=== PATIENT | male | born 1980 | race Caucasian/White ===

== ENCOUNTER 2019-01-20 07:36 | Inpatient (IN) | payer OTHER ==
[~2019-01-20] VITALS: Ht 175.3 cm; Wt 76.6 kg
[~2019-01-20 07:36] MED LIST: CLIN300 PO
[2019-01-20 08:36] LABS: Hematocrit 43.7 % (37.0-53.0); Hemoglobin 15.5 g/dL (13.5-17.5); Mean Corpuscular HGB 30.8 pg (26.0-34.0); Mean Corpuscular HGB Conc 35.5 g/dL (31.5-36.5); Mean Corpuscular Volume 87 fL (80-100); Mean Platelet Volume 10.1 fL (9.1-12.4); Platelet Count 169 K/mm3 (150-400); RDW Coefficient Variation 13.1 % (11.7-14.2); RDW Standard Deviation 41.2 fL (35.1-46.3); Red Blood Cell Count 5.04 M/mm3 (4.30-5.90); White Blood Cell Count 13.76 K/mm3 (4.00-11.30)
[2019-01-20 08:49] LABS: International Normalized Ratio 1.17; Prothrombin Time Results 12.2 Sec (9.7-11.5)
[2019-01-20 08:57] LABS: Albumin, Blood 2.3 g/dL (3.4-5.0); Albumin/Globulin Ratio 0.5 (0.8-1.8); Bun/Creatinine Ratio 30.7 (12.0-20.0); Calcium, Blood 8.4 mg/dL (8.5-10.1); Creatinine, Blood 1.5 mg/dL (0.60-1.20); Globulin, Blood 4.2 g/dL (2.2-4.0); Potassium, Blood 3.2 mmol/L (3.5-5.5); Total Protein, Blood 6.5 g/dL (6.4-8.2)
[2019-01-20 09:00] LABS: BAND PERCENT MAN 16 % (0-8); BASOPHILS PERCENT MAN 0 % (0-2); EOSINOPHILS ABSOLUTE MAN 0.13 K/mm3 (0.00-0.68); EOSINOPHILS PERCENT MAN 1 % (0-6); LYMPHOCYTES ABSOLUTE MAN 0.96 K/mm3 (0.84-5.20); LYMPHOCYTES PERCENT MAN 7 % (21-46); METAMYELOCYTE ABSOLUTE MAN 0.27 K/mm3 (0.00-0.00); METAMYELOCYTE PERCENT MAN 2 % (0-0); MONOCYTES ABSOLUTE MAN 0.41 K/mm3 (0.16-1.47); MONOCYTES PERCENT MAN 3 % (4-13); NEUTROPHILS ABSOLUTE MAN 11.97 K/mm3 (1.96-9.15); SEG NEUTROPHILS PERCENT MAN 71 % (41-73); TOTAL CELLS COUNTED 100
[2019-01-20] MEDS ORDERED: NAPR500 PO (09:00)
[2019-01-20] MEDS ORDERED: Norco 5-325 Ta1 EACH PO (09:01)
[2019-01-20] MEDS ORDERED: PROBIOTIC1 EAC1 PO (09:01)
--- NOTE | 2019-01-20 11:11 | NUR ---
ADMIT: PT ARRIVED TO ICU 6 VIA BED, ABLE TO STAND AND TRANSFER SELF TO BED WITH 1 ASSIST. PT ALERT AND ORIENTED. SWELLING, FIRMNESS, AND LIGHT REDNESS AROUND CHIN AND NECK. PT STATES IT IS A LITTLE PAINFUL TO TOUCH AND HE HAS HAD MILD DIFFICULTY WITH EATING AND SWALLOWING FOOD. BREATHING APPEARS UNLABORED AT THIS TIME. ON 1L/NC WITH SPO2 95%. PT STATES REDNESS STARTED AFTER HE CUT HIMSELF SHAVING AND ABCESS HAS BEEN DRAINED ONCE AT URGENT CARE. HE DOESN'T BELIEVE THEY TOOK ANY SWABS OR CULTURES. IV ABX STARTED. SEPSIS FLUID BOLUS GOING FOR TOTAL OF 1700CC. CONTINUING TO MONITOR.
--- NOTE | 2019-01-20 14:30 | NUR ---
PT'S HR HAS BEEN INCREASING, WAS 120S WHEN HE GOT HERE, NOW REACHING 140S, SINUS. BP REMAINS STABLE. DR. ARITA NOTIFIED, RECEIVED ORDER FOR 1L NS BOLUS AND PAIN MEDICINE GIVEN. CONTINUE TO MONITOR.
--- NOTE | 2019-01-20 15:45 | NUR ---
PT'S HR DOWN TO 130 AFTER BOLUS AND PAIN MEDICATION. SPOKE WITH DR. ARITA AND SHE OK'D PT TO STILL GO TO MEDICAL FLOOR WITH TELE.
--- NOTE | 2019-01-20 16:17 | NUR ---
PT'S SBP IN THE 80S NOW, MAP STILL IN THE 70S AND PT'S SPO2 WAS 91% ON 1L/NC. OXYGEN INCREASED TO 2L/NC AND DR. ARITA NOTIFIED OF BP. PT STILL HASN'T VOIDED YET AND DENIES THE URGE TO VOID WELL. DR. ARITA GAVE ORDERS TO MAKE PT PCU STATUS INSTEAD OF MED TELE. CONTINUE TO MONITOR.
[2019-01-20 17:02] LABS: Source, Urine Clean Catch
[2019-01-20 17:10] LABS: Adenovirus Not Detected (NOT DETECT); Bordetella pertussis Not Detected (NOT DETECT); Chlamydophila pneumoniae Not Detected (NOT DETECT); Coronavirus 229E Not Detected (NOT DETECT); Coronavirus HKU1 Not Detected (NOT DETECT); Coronavirus NL63 Not Detected (NOT DETECT); Coronavirus OC43 Not Detected (NOT DETECT); Human Metapneumovirus Not Detected (NOT DETECT); Human Rhinovirus/Enterovirus Not Detected (NOT DETECT); Influenza A Not Detected (NOT DETECT); Influenza A/2009-H1 Not Detected (NOT DETECT); Influenza A/H1 Not Detected (NOT DETECT); Influenza A/H3 Not Detected (NOT DETECT); Influenza B Not Detected (NOT DETECT); Mycoplasma pneumoniae Not Detected (NOT DETECT); Parainfluenza Virus 1 Not Detected (NOT DETECT); Parainfluenza Virus 2 Not Detected (NOT DETECT); Parainfluenza Virus 3 Not Detected (NOT DETECT); Parainfluenza Virus 4 Not Detected (NOT DETECT); Respiratory Syncytial Virus Not Detected (NOT DETECT)
[2019-01-20 17:15] LABS: Blood, Urine 4+ (Neg); Glucose Qualitative, Urine Neg (Neg); Ketones, Urine 1+ (Neg); Leukocyte Esterase, Urine 1+ (Neg); Nitrite, Urine Neg (Neg); Protein, Urine 2+ (Neg); Specific Gravity, Urine 1.015 (1.003-1.022); Urobilinogen, Urine 3+ (Normal)
--- NOTE | 2019-01-20 17:30 | NUR ---
SHIFT SUMMARY: PT CONTINUES TO BE ST WITH RATE IN THE 120-130. SBP IS HANGING IN THE 90-LOW 100 RANGE, BUT MAP REMAINS ABOVE 65. PT WAS ABLE TO VOID. URINE VERY DARK, TEA COLORED, CONCENTRATED LOOKING. PT IS ALERT AND ORIENTED, DENIES DIZZINESS, SLIGHTLY DIAPHORETIC. SWELLING AND REDNESS UNDERNEATH HIS CHIN UNCHANGED. PT IS EATING SOME AND TOLERATING HIS DIET. HE STATES THE HARDEST PART ABOUT EATING IS THE GENERALIZED WEAKNESS. NO OTHER CONCERNS FROM PT AT THIS TIME. CONTINUING TO MONITOR.
[2019-01-20 17:39] LABS: U Amphetamine Screen Not Detected; U Barbituate Screen Not Detected; U Benzodiazapine Screen Not Detected; U Buprenorphine Screen Not Detected; U Cannabinoids Screen Not Detected; U Cocaine Screen Not Detected; U Methadone Screen Not Detected; U Methamphetamine Screen Not Detected; U Opiates Screen DETECTED; U Oxycodone Screen Not Detected; U Phencyclidine Screen Not Detected; U Propoxyphene Screen Not Detected
[2019-01-20 17:43] LABS: Bilirubin, Urine 2+ (Neg)
[2019-01-20 17:44] LABS: Appearance, Urine Cloudy (Clear); Color, Urine Amber (P-Yellow)
[2019-01-20 17:46] LABS: Squamous Epithelial Cells Few /hpf (Few)
[2019-01-20 17:47] LABS: Bacteria Many /hpf; Red Blood Cells, Urine 0-2 /hpf (0-2)
--- NOTE | 2019-01-20 20:32 | NUR ---
NIGHTSHIFT ASSUMED CARE OF PT APPROX. 1900. PT A&O X4. ASSESSMENT COMPLETED. VITAL SIGNS STABLE. BP, SLIGHTLY LOW BUT MAP REMAINS IN 60'S. HEART RHYTHM SINUS TACHYCARIDA IN 130'S AT THIS TIME. PT CHIN WARM TO TOUCH AND SLIGHTLY RED. PT REPORTS SLIGHT PAIN WITH TOUCH BUT REPORTS IT FEELS BETTER THAN IT HAS. BED IN LOW POSITION, CALL LIGHT IN REACH AND PT DENIES ANY NEEDS.
--- NOTE | 2019-01-20 22:04 | NUR ---
NOTE PT BLOOD PRESURE CONTINUED TO BE LOW. SBP IN 90'S. ALTHOUGH MAP STILL IN 60'S. PHYSICIAN NOTIFIED. RECIEVED ORDERS FOR FLUID BOLUS. GIVEN PER EMAR ORDERS. WILL CONTINUE TO MONITOR THIS.
[2019-01-20 22:27] LABS: Anion Gap 7 mmol/L (6-16); Blood Urea Nitrogen 39 mg/dL (8-24); Bun/Creatinine Ratio 28.1 (12.0-20.0); CO2, Blood 27 mmol/L (21-32); Calcium, Blood 7.3 mg/dL (8.5-10.1); Chloride, Blood 106 mmol/L (98-108); Creatinine, Blood 1.39 mg/dL (0.60-1.20); Glomerular Filtration Rate >60 (60-); Glucose, Blood 108 mg/dL (70-99); Potassium, Blood 3.6 mmol/L (3.5-5.5); Sodium, Blood 140 mmol/L (136-145)
--- NOTE | 2019-01-20 22:40 | NUR ---
NOTE PHYSICIAN AT BEDSIDE TO ASSESS PT. INCREASED RATE OF NS PER PHYSICIAN ORDERS. WILL AWAIT AND IMPLEMENT ANY NEW ORDERS.
--- NOTE | 2019-01-20 22:49 | NUR ---
NOTE PREVIOUSLY NOTIFIED OF POSITIVE BLOOD CULUTES. PHYSICIAN NOTIFIED OF THIS. NO NEW CHANGES AT THIS TIME.
--- NOTE | 2019-01-21 00:30 | NUR ---
ASSUMED CARE ASSUMED CARE OF PT AT THIS TIME. DR. MASCORRO PLACED RIGHT FEMORAL CENTRAL LINE. LEVOPHED STARTED AT 4MCG/MIN TO KEEP MAP >65. MONITOR SHOWS ST, RATE 130s. O2 2LNC. SHALLOW AND TACHYPNEIC RESPIRATIONS. DENIES C/O SOB OR DYSPNEA. DENIES C/O NAUSEA. COLOR PALE, SKIN SLIGHTLY CLAMMY. AFEBRILE. C/O RIGHT SIDE/BACK PAIN 02/02- MEDICATED WITH FENTANLY 50MCG IV PER ORDER. NS INFUSING AT 150CC/HR PER ORDER.
--- NOTE | 2019-01-21 00:50 | NUR ---
NOTE ORDERS RECIEVED FOR CENTRAL LINE INSERTION AND TO HAVE PRESSORS PER MD ORDRES. REPORT GIVEN TO RICKIE ANNE WHO WILL BE TAKING OVER CARE FOR THIS PATIENT AT THIS TIME.
[2019-01-21 04:08] LABS: Hematocrit 35.1 % (37.0-53.0); Hemoglobin 12.1 g/dL (13.5-17.5); LYMPHOCYTES ABSOLUTE AUTO 0.52 K/mm3 (0.84-5.20); LYMPHOCYTES PERCENT AUTO 4 % (21-46); MONOCYTES ABSOLUTE AUTO 0.26 K/mm3 (0.16-1.47); MONOCYTES PERCENT AUTO 2 % (4-13); Mean Corpuscular HGB 30.9 pg (26.0-34.0); Mean Corpuscular HGB Conc 34.5 g/dL (31.5-36.5); Mean Platelet Volume 10.3 fL (9.1-12.4); Platelet Count 121 K/mm3 (150-400); RDW Coefficient Variation 13.9 % (11.7-14.2); RDW Standard Deviation 45.4 fL (35.1-46.3); Red Blood Cell Count 3.91 M/mm3 (4.30-5.90); White Blood Cell Count 12.92 K/mm3 (4.00-11.30)
[2019-01-21 04:10] LABS: BASOPHILS ABSOLUTE AUTO 0.01 K/mm3 (0.00-0.23); BASOPHILS PERCENT AUTO 0 % (0-2); EOSINOPHILS ABSOLUTE AUTO 0.11 K/mm3 (0.00-0.68); EOSINOPHILS PERCENT AUTO 1 % (0-6); IMMATURE GRAN ABSOLUTE AUTO 0.84 K/mm3 (0.00-0.10); IMMATURE GRAN PERCENT AUTO 7 % (0-1); Mean Corpuscular Volume 90 fL (80-100); NEUTROPHILS ABSOLUTE AUTO 11.18 K/mm3 (1.96-9.15); NEUTROPHILS PERCENT AUTO 87 % (41-73)
[2019-01-21 04:26] LABS: Alanine Aminotransfer (ALT/SGP 51 U/L (12-78); Albumin, Blood 1.4 g/dL (3.4-5.0); Albumin/Globulin Ratio 0.4 (0.8-1.8); Alk Phos 96 U/L (50-136); Anion Gap 9 mmol/L (6-16); Aspartate Aminotrans (AST/SGOT 104 U/L (12-37); Bilirubin, Total 2.9 mg/dL (0.1-1.0); Blood Urea Nitrogen 36 mg/dL (8-24); Bun/Creatinine Ratio 29.8 (12.0-20.0); CO2, Blood 24 mmol/L (21-32); Calcium, Blood 7.3 mg/dL (8.5-10.1); Chloride, Blood 107 mmol/L (98-108); Creatinine, Blood 1.21 mg/dL (0.60-1.20); Globulin, Blood 3.2 g/dL (2.2-4.0); Glomerular Filtration Rate >60 (60-); Glucose, Blood 92 mg/dL (70-99); Magnesium, Blood 2.1 mg/dL (1.6-2.4); Potassium, Blood 3.9 mmol/L (3.5-5.5); Sodium, Blood 140 mmol/L (136-145); Total Protein, Blood 4.6 g/dL (6.4-8.2)
[2019-01-21 04:27] LABS: BAND PERCENT MAN 29 % (0-8); BASOPHILS PERCENT MAN 0 % (0-2); EOSINOPHILS ABSOLUTE MAN 0.25 K/mm3 (0.00-0.68); EOSINOPHILS PERCENT MAN 2 % (0-6); LYMPHOCYTES ABSOLUTE MAN 0.51 K/mm3 (0.84-5.20); LYMPHOCYTES PERCENT MAN 4 % (21-46); METAMYELOCYTE ABSOLUTE MAN 0.12 K/mm3 (0.00-0.00); METAMYELOCYTE PERCENT MAN 1 % (0-0); MONOCYTES PERCENT MAN 0 % (4-13); NEUTROPHILS ABSOLUTE MAN 12.01 K/mm3 (1.96-9.15); SEG NEUTROPHILS PERCENT MAN 64 % (41-73); TOTAL CELLS COUNTED 100
--- NOTE | 2019-01-21 06:25 | NUR ---
SHIFT SUMMARY ACUTE CHANGES NOTED DURING NOC. RIGHT FEMORAL CENTRAL LINE PLACED AND PRESSORS STARTED FOR CONTINUED HYPOTENSION. LEVOPHED INFUSED BETWEEN 4-7MCG/MIN DURING SHIFT TO KEEP MAP >65- NOW INFUSING @ 6MCG/MIN. MEDICATED WITH FENTANYL 50MCG IV X 1 AND NORCO 5/325MG PO X 1 FOR C/O RIGHT SIDE/BACK PAIN AND GENERAL DISCOMFORT. RESPIRATIONS SHALLOW AND TACHYPNEIC, RATE 20-30s. DENIES C/O SOB OR DYSPNEA. REMAINS ON 2L NC. MONITOR SHOWS ST, RATE 120-130s. AFEBRILE. VOIDED X 1- 650CC DARK BROWN URINE. DENIES C/O NAUSEA. WILL REPORT TO DAY SHIFT RN WHEN AVAILABLE.
--- NOTE | 2019-01-21 09:27 | NUR ---
CARE ASSUMED CARE AND REPORT ASSUMED FROM RICKIE ANNE. PT SITTING UP IN BED WATCHING TV. COMPLAINS OF PAIN TO ALL EXTREMITIES AND IS SLOW TO MOVE IN BED DUE TO WORSENING PAIN. C/O L FLANK PAIN WITH DEEP INSPIRATION. LUNG SOUNDS CLEAR TO DIMINSHED. SPO2 93% ON 2L NC. HEALING SCAB ON CHIN; MILD SURROUDNING REDNESS AND MILD SWELLING. [place], HR 120S. MAP 85 AT THIS TIME; LEVOPHED GTT TITRATED AND NOW INFUSING AT 4 MCG. NS INFUSING AT 150 ML/HR PER ORDER. PT HAD MEDIUM, SOFT BROWN BM IN BEDPAN. CALL LIGHT WITHIN REACH. PT A/O X 3, HE IS CALM AND COOPERATIVE BUT DOES HAVE FLAT AFFECT. WILL CONTINUE TO MONITOR.
--- NOTE | 2019-01-21 11:54 | NUR ---
REASSESSMENT PT SITTING UP IN BED WATCHING TV. STATES PAIN IS CONTROLLED AT THIS TIME. SIN[place], HR 120S. MAP 75 AT THIS TIME; LEVOPHED GTT INFUSING AT 3 MCG/MIN. MIV DISCONTINUED AND IS NOW TKO. PT STATES HE IS COMFORTABLE IN THE POSITION HE IS IN. AFEBRILE. LUNG SOUNDS REMAIN CLEAR TO DIMINISHED. PT REMAINS A/O X3. WILL CONTINUE TO MONITOR.
--- NOTE | 2019-01-21 12:43 | NUR ---
Echocardiogram performed by Lilly Hong.
--- NOTE | 2019-01-21 14:48 | NUR ---
RHYTHM CHANGE AFTER USING THE URINAL, PT HAD SUDDEN RHYTHM CHANGE INTO AFIB WITH RVR AT 1340. ATTEMPTED VAGAL MANUEVERS FEW TIMES BEFORE MD ROBINS CALLED TO BEDSIDE. DEFIB PADS APPLIED TO PATIENT AND ADENOSINE 6 MG IVP ADMINISTERED WITH MD BEDSIDE AND PT ON ZOLL MONITOR. HR HIGH 210. HR DECREASED FOR SHORT TIME AND THEN WAS BACK UP TO 200. EKG OBTAINED; RHYTHM AFIB WITH RVR. METOPROLOL 5 MG IVP GIVEN PER MD AND 1L NS BOLUS STARTED. HR DECREASED TO 130-160S. AMIODARONE BOLUS INFUSION ADMINISTERED AND PT NOW ON AMIODARONE GTT AT 1 MG/MIN. REMAINS ON LEVOPHED GTT AT 3 MCG. WILL CONTINUE TO MONITOR.
--- NOTE | 2019-01-21 18:19 | NUR ---
SHIFT SUMMARY SEE NOTES FROM EVENT THIS AFTERNOON. SINCE THEN, AMIODARONE GTT HAS BEEN INFUSING AT 1 MG/MIN. HAS STATED PAIN HAS BEEN CONTROLLED AND HAS REFUSED PAIN MEDS. AFEBRILE. REMAINS ON 3 MCG LEVOPHED. ANTIBIOTICS INFUSING. REFUSED ALL MEALS TODAY AND STATES HE IS NOT HUNGRY. RECEIVED BEDBATH AND LINEN CHANGE THIS AFTERNOON. WILL GIVE BEDSIDE, HANDOFF REPORT TO LILLY RN.
--- NOTE | 2019-01-21 19:00 | NUR ---
ASSUMED CARE ASSUMED CARE OF PATIENT. AWAKE AND ALERT. VISITING WITH FAMILY. CONTINUES WITH SIGNIFICANT GENERAL WEAKNESS. PT IS ABLE TO WEAKLY REPOSITION SELF IN BED. CONTINUES WITH C/O GENERAL DISCOMFORT WELL BACK/SIDE PAIN. RESPIRATIONS SHALLOW AND TACHYPEIC. PT USING INCENTIVE SPIROMETER WITH ENCOURAGEMENT. OCCASIONAL COUGH NOTED. MONITOR SHOWS AFIB, RATE 140-150s. LEVOPHED INFUSING @ 3MCG/MIN TO KEEP MAP >65. DENIES C/O NAUSEA. POOR APPETITE. VOIDING OCCASIONALLY- DARK TEA COLORED URINE. SEE SHIFT ASSESSMENT FOR FULL ASSESSMENT.
--- NOTE | 2019-01-21 21:19 | NUR ---
AFIB WITH RVR/CALL TO MD MONITOR SHOWS AFIB, RATE 130s-170s. DR. ROBINS NOTIFIED AND PLAN IS TO CONTINUE CURRENT TREATMENT. AMIODARONE TO CONTINUE @ 0.5MG/MIN PER ORDER.
[2019-01-22 04:14] LABS: Hematocrit 35.5 % (37.0-53.0); Hemoglobin 12.2 g/dL (13.5-17.5); Mean Corpuscular HGB 31.6 pg (26.0-34.0); Mean Corpuscular HGB Conc 34.4 g/dL (31.5-36.5); Mean Corpuscular Volume 92 fL (80-100); Mean Platelet Volume 10.1 fL (9.1-12.4); Platelet Count 104 K/mm3 (150-400); RDW Coefficient Variation 14.6 % (11.7-14.2); RDW Standard Deviation 49.5 fL (35.1-46.3); Red Blood Cell Count 3.86 M/mm3 (4.30-5.90); White Blood Cell Count 26.65 K/mm3 (4.00-11.30)
[2019-01-22 04:28] LABS: Alanine Aminotransfer (ALT/SGP 37 U/L (12-78); Albumin, Blood 1.2 g/dL (3.4-5.0); Albumin/Globulin Ratio 0.3 (0.8-1.8); Alk Phos 106 U/L (50-136); Anion Gap 10 mmol/L (6-16); Aspartate Aminotrans (AST/SGOT 75 U/L (12-37); Bilirubin, Total 3.4 mg/dL (0.1-1.0); Blood Urea Nitrogen 34 mg/dL (8-24); Bun/Creatinine Ratio 29.8 (12.0-20.0); CO2, Blood 26 mmol/L (21-32); Calcium, Blood 7.7 mg/dL (8.5-10.1); Chloride, Blood 107 mmol/L (98-108); Creatinine, Blood 1.14 mg/dL (0.60-1.20); Globulin, Blood 3.6 g/dL (2.2-4.0); Glomerular Filtration Rate >60 (60-); Glucose, Blood 82 mg/dL (70-99); Magnesium, Blood 2.4 mg/dL (1.6-2.4); Phosphorus, Blood 2.5 mg/dL (2.5-4.9); Sodium, Blood 143 mmol/L (136-145); Total Protein, Blood 4.8 g/dL (6.4-8.2)
[2019-01-22 05:24] LABS: BAND PERCENT MAN 5 % (0-8); BASOPHILS PERCENT MAN 0 % (0-2); EOSINOPHILS ABSOLUTE MAN 0.26 K/mm3 (0.00-0.68); EOSINOPHILS PERCENT MAN 1 % (0-6); LYMPHOCYTES ABSOLUTE MAN 0.79 K/mm3 (0.84-5.20); LYMPHOCYTES PERCENT MAN 3 % (21-46); MONOCYTES ABSOLUTE MAN 0.79 K/mm3 (0.16-1.47); MONOCYTES PERCENT MAN 3 % (4-13); NEUTROPHILS ABSOLUTE MAN 24.51 K/mm3 (1.96-9.15); PLASMA CELL ABSOLUTE MAN 0.26 K/mm3 (0.00-0.00); PLASMA CELLS PERCENT MAN 1 % (0-0); SEG NEUTROPHILS PERCENT MAN 87 % (41-73); TOTAL CELLS COUNTED 100
--- NOTE | 2019-01-22 06:20 | NUR ---
SHIFT SUMMARY NO ACUTE CHANGES DURING NOC. SLEPT INTERMITTENTLY WHEN UNDISTURBED. ROUSES TO STIMULI. MEDICATED WITH NORCO 5/325MG PO X 2 DOSES FOR C/O RIGHT SIDE PAIN AND GENERAL DISCOMFORT. CONTINUES WITH SIGNIFICANT GENERAL WEAKNESS. USES INCENTIVE SPIROMETER WITH ENCOURAGEMENT. RESPIRATIONS REMAIN SHALLOW AND TACHYPNEIC. REMAINS ON 2L NC. MONITOR SHOWS AFIB T/O NOC, RATE 120-150s. LEVOPHED GTT BETWEEN 3-7MCG/MIN DURING SHIFT TO MAINTAIN MAP >65- NOW INFUSING @ 7MCG/MIN. AMIODARONE GTT CONTINUES @ 0.5MG/MIN PER ORDER. AFEBRILE. VOIDED X 1- DARK TEA-COLORED URINE. WILL REPORT TO DAY SHIFT RN WHEN AVAILABLE.
--- NOTE | 2019-01-22 08:11 | NUR ---
ASSESSMENT- Pt. awake and alert. pt, pale,clammy, weak. Denies need for pain med at this time but would like med before inc. activity due to rt. sided back pain. Levophed titrating down as armando but will keep map>60. Amiodarone infusing at 0.5 mg/min.
--- NOTE | 2019-01-22 09:38 | NUR ---
CARE ASSUMED CARE AND REPORT ASSUMED FROM SHAINA MAZARIEGOS RN. PT SITTING UP IN BED WATCHING TV AND SLOWLY EATING BREAKFAST. C/O DIFFUSE PAIN, WORSE IN BACK. ENCOURAGED PT TO BREATHE DEEPLY, USE INCENTIVE SPIROMETER TOLERATED, AND MOBILIZE EXTREMITIES. LEVOPHED GTT INFUSING AT 5 MCG. AMIODARONE GTT INFUSING AT 0.5 MG/MIN. AFIB, HR 120-150. WILL CONTINUE TO MONITOR PT.
[2019-01-22 11:31] LABS: PCO2 Arterial 41.5 mmHg (35-45); pH Blood Arterial 7.41 (7.35-7.45)
[2019-01-22 15:23] LABS: Vancomycin, Trough 14.5 ug/mL (5.0-10.0)
--- NOTE | 2019-01-22 18:58 | NUR ---
SHIFT SUMMARY PT SLEPT OFF/ON DURING SHIFT. NORCO PO GIVEN X1 DURING SHIFT AND STATED PAIN IMPROVED AFTER. SHALLOW BREATHING ENTIRE SHIFT. TOLERATED WEARING 2-4L O2 NC WITH SPO2 RANGING FROM 88-92%. HAD EPISODE OF NAUSEA AND VOMITING; RECEIEVED ANTINAUSEA AND SYMPTOMS IMPROVED. SEEN BY MD MAZA, I/D. REMAINS ON LEVOPHED GTT AT 3 MCG/MIN. AFEBRILE DURING SHIFT. AMIODRAONE GTT TO BE CONTINUED UNTIL TOMORROW AND REEVALUATED AFTER ADDITIONAL 24 HOURS; 1430 TOMORROW. PT SPONTANEOUSLY CONVERTED INTO NSR AT 1530; SEE RHYTHM STRIP IN CHART. BEDSIDE, HANDOFF REPORT GIVEN TO LILLY ANNE.
--- NOTE | 2019-01-22 19:00 | NUR ---
ASSUMED CARE ASSUMED CARE OF PATIENT. RESTING QUIETLY WHEN UNDISTURBED. ROUSES EASILY TO STIMULI. CONTINUES WITH C/O GENERAL DISCOMFORT AND RIGHT/LEFT SIDE/UPPER ABDOMEN PAIN. SIGNIFICANT GENERAL WEAKNESS NOTED. REPOSITIONS SELF IN BED SLIGHTLY. LEVOPHED CONTINUES @ 2MCG/MIN TO MAINTAIN MAP >60-65. MONITOR SHOWS ST, RATE 100-110. REMAINS ON 3LNC AT THIS TIME. RESPIRATIONS SHALLOW AND TACHYPNEIC. C/O NAUSEA. SEE SHIFT ASSESSMENT FOR FULL ASSESSMENT.
--- NOTE | 2019-01-22 20:05 | NUR ---
NAUSEA/VOMITING CONTINUES TO C/O NAUSEA. EMESIS OF APPROXIMATELY 50CC NOTED. MEDICATED WITH ZOFRAN 4MG IV AT THIS TIME.
--- NOTE | 2019-01-22 23:55 | NUR ---
NAUSEA PT C/O CONTINUED NAUSEA. TALKED WITH LUIZA FLORES NP, REGARDING MEDICATIONS ONLY ORDERED Q6H PRN. NEW ORDERS RECEIVED AT THIS TIME.
--- NOTE | 2019-01-23 00:15 | NUR ---
DYSPNEA/CALL TO MD PT REQUESTING TO "START THE BREATHING THING THE DOCTOR WAS TALKING ABOUT." DENIES C/O DYSPNEA/SOB BUT STATES THAT HE'S TIRED OF FEELING LIKE HE CAN'T GET ENOUGH AIR. DR. ROBINS NOTIFIED AND NEW ORDERS RECEIVED. RT NOTIFIED OF NEW ORDERS.
--- NOTE | 2019-01-23 00:45 | NUR ---
AIRVO RT AT BEDSIDE TO PLACE PT ON AIRVO- 30LPM/50% FIO2.
--- NOTE | 2019-01-23 01:56 | NUR ---
PT COMPLAINT THAT AIRVO WAS MAKING IT MORE DIFFICULT TO BREATHE. PT ASKED IF HE IS COULD TOLERATE A MASK ON HIS FACE AND HE NODDED YES. BIPAP SET UP 05/30 WITH 5L BLEED. PT SWATTED AT MASK BEFORE IT TOUCHED HIS FACE STATING IT WAS WAY TOO MUCH AND WOULD MAKE IT DIFFICULT TO BREATHE. BIPAP AND LUNG EXPANSION EXPLAINED TO PT. ATTEMPTED TO PLACE BIPAP ON PT AGAIN AND HE AGAIN SWATTED AT THE BIPAP AND STATES HE CANNOT DO IT. PT PLACED BACK ON 5L DAYANA DAVIS NOTIFIED.
--- NOTE | 2019-01-23 02:00 | NUR ---
BIPAP PT C/O AIRVO NOT WORKING. RT AT BEDSIDE AND ATTEMPTED TO PLACE PT ON BIPAP 10/5 WITH 5L BLEED-IN, BUT PT DID NOT TOLERATE MASK EVEN BEING PUT ON FACE. SEE RT DOCUMENTATION FOR REPORT. PT BACK TO 5L NC AT THIS TIME.
[2019-01-23 03:36] LABS: Hematocrit 33.7 % (37.0-53.0); Hemoglobin 11.6 g/dL (13.5-17.5); Mean Corpuscular HGB 31.3 pg (26.0-34.0); Mean Corpuscular HGB Conc 34.4 g/dL (31.5-36.5); Mean Corpuscular Volume 91 fL (80-100); Mean Platelet Volume 9.4 fL (9.1-12.4); Platelet Count 109 K/mm3 (150-400); RDW Coefficient Variation 14.6 % (11.7-14.2); RDW Standard Deviation 49.3 fL (35.1-46.3); Red Blood Cell Count 3.71 M/mm3 (4.30-5.90); White Blood Cell Count 29.54 K/mm3 (4.00-11.30)
[2019-01-23 03:51] LABS: Albumin, Blood 1.2 g/dL (3.4-5.0); Anion Gap 8 mmol/L (6-16); Blood Urea Nitrogen 34 mg/dL (8-24); Bun/Creatinine Ratio 32.4 (12.0-20.0); CO2, Blood 28 mmol/L (21-32); Calcium, Blood 7.3 mg/dL (8.5-10.1); Chloride, Blood 103 mmol/L (98-108); Creatinine, Blood 1.05 mg/dL (0.60-1.20); Glomerular Filtration Rate >60 (60-); Glucose, Blood 109 mg/dL (70-99); Phosphorus, Blood 2.7 mg/dL (2.5-4.9); Potassium, Blood 3.5 mmol/L (3.5-5.5); Sodium, Blood 139 mmol/L (136-145)
[2019-01-23 03:55] LABS: BAND PERCENT MAN 13 % (0-8); BASOPHILS PERCENT MAN 0 % (0-2); EOSINOPHILS PERCENT MAN 0 % (0-6); LYMPHOCYTES ABSOLUTE MAN 0.88 K/mm3 (0.84-5.20); LYMPHOCYTES PERCENT MAN 3 % (21-46); MONOCYTES ABSOLUTE MAN 0.29 K/mm3 (0.16-1.47); MONOCYTES PERCENT MAN 1 % (4-13); MYELOCYTE ABSOLUTE MAN 0.29 K/mm3 (0.00-0.00); MYELOCYTE PERCENT MAN 1 % (0-0); NEUTROPHILS ABSOLUTE MAN 28.06 K/mm3 (1.96-9.15); SEG NEUTROPHILS PERCENT MAN 82 % (41-73); TOTAL CELLS COUNTED 100
--- NOTE | 2019-01-23 04:00 | NUR ---
SHORTNESS OF BREATH PT C/O FEELING LIKE HE "CAN'T GET ENOUGH AIR IN." PT IS TEARFUL AND STATES "I CAN'T KEEP GOING LIKE THIS. I NEED TO SLEEP BUT I FEEL LIKE I WON'T BREATHE IF I DO." DISCUSSED USE OF BIPAP, BUT PT TEARFULLY STATES THAT HE CAN'T TOLERATE IT. STATES "I NEED THAT OTHER MACHINE." WHEN QUESTIONED, PT RELATES THAT HE IS TALKING ABOUT INTUBATION AND MECHANICAL VENTILATION. DISCUSSED CURRENT STATUS WITH PATIENT AND EDUCATED HIM ON RISKS OF INTUBATION AND CURRENT PLAN OF CARE. PT CONTINUES TO BE TEARFUL AND AGITATED/ANXIOUS. AM LABS DRAWN AT THIS TIME AND WILL DISCUSS PT'S CONCERNS WITH DR. ROBINS WHEN RESULTS ARE BACK. PT REMAINS ON 5L NC WITH SATS 93-94%. RESPIRATIONS ARE SHALLOW AND TACHYPNEIC, RATE 20s-30.
--- NOTE | 2019-01-23 05:50 | NUR ---
CALL TO MD DR. ROBINS NOTIFIED OF PT'S WANTING TO BE INTUBATED DESPITE ADEQUATE SATURATIONS ON 5L NC AND NO INCREASE IN WORK OF BREATHING. DISCUSSED PT'S CURRENT STATUS/VS/ANXIETY WITH MD. NEW ORDERS RECEIVED FOR STAT ABG, CHR, AND ATIVAN.
[2019-01-23 05:59] LABS: PCO2 Arterial 38.5 mmHg (35-45); PO2 Arterial 69.5 mmHg (80-100); pH Blood Arterial 7.46 (7.35-7.45)
--- NOTE | 2019-01-23 06:45 | NUR ---
SHIFT SUMMARY PT REMAINS ON 5L NC AT THIS TIME. RESPIRATIONS SHALLOW AND TACHYPNEIC WITH RATE 20-30. O2 SATS 92-94%. PT C/O SHORTNESS OF BREATH AND FEELING LIKE HE CAN'T GET ENOUGH AIR. WORK OF BREATHING HAS NOT CHANGED T/O SHIFT. REFUSES ORDERED ATIVAN- STATES "I DON'T NEED ANY MORE MEDICATION AND I DON'T FEEL ANXIOUS." MONITOR SHOWS ST, RATE 100-110. BP STABLE- LEVOPHED HAS BEEN OFF SINCE APPROXIMATELY 1999. AMIODARONE CONTINUES @ 0.5MG/MIN PER ORDER. CONTINUES WITH POOR APPETITE. MEDICATED WITH ZOFRAN 4MG IV X 2 DURING NOC. MEDICATED WITH FENTANYL 50MCG IV X 2 FOR C/O RIGHT/LEFT SIDE/UPPER ABD PAIN. VOIDING WITHOUT DIFFICULTY. WILL REPORT TO DAY SHIFT RN WHEN AVAILABLE.
--- NOTE | 2019-01-23 07:15 | NUR ---
RECEIVED REPORT FROM DAYANA DAMIAN, AND ASSUMED CARE OF PT.
--- NOTE | 2019-01-23 09:00 | NUR ---
DR. ROBINS AT BEDSIDE FOR EVALUATION.
--- NOTE | 2019-01-23 09:28 | NUR ---
DR. RUIZ AT BEDSIDE FOR EVALUATION AND TO CONSENT PT FOR ANDREAS TODAY AROUND NOON.
--- NOTE | 2019-01-23 12:41 | NUR ---
INFECTION WRITER EDITOR CAME BY AND STATED THE PT DOES NOT NEED TO BE IN ISOLATION FOR MRSA IN THE BLOOD AND THAT THE PT DOESN'T HAVE ANYTHING ELSE THAT WOULD REQUIRE ISOLATION. DISCONTINUED ISOLATION.
--- NOTE | 2019-01-23 13:50 | NUR ---
ANDREAS PERFORMED AT THE BEDSIDE WITH DR. RUIZ, ECHO, RESPIRATORY THERAPY AND MYSELF. PT POSITIONED ON LEFT SIDE, SUCTION AND AMBUBAG READY, SEDATION WITH 1 MG VERSED IVP AND 25 MCG FENTANYL IVP GIVEN AT 1342. PROCEDURE DONE AT 1350. PT TOLERATED WELL. DR. RUIZ ADVISED THAT THE ANDREAS WAS NEGATIVE FOR VEGITATION AND INFECTION.
[2019-01-23 14:30] LABS: Vancomycin, Trough 13.8 ug/mL (5.0-10.0)
--- NOTE | 2019-01-23 16:55 | NUR ---
NURSING SUMMARY ALERT AND ORIENTED X 4, FOLLOWS COMMANDS. ANXIOUS, STARTED PO ATIVAN, WORKS WELL. LUNGS WITH CRACKLES THIS AM, DIMINISHED AT BASES, SHALLOW BREATHING, TACHYPNEIC RR 33, SATS 88-91% ON 5L O2 NC. GAVE LASIX 40 MG IVP WITH LARGE URINE OUTPUT. CHANGED OXYGEN FLOW TO OXIMYZER 5L WITH SAT INCREASE TO 93%. ANDREAS DONE AT BEDSIDE AT 1345, NEGATIVE, INCREASED OXYGEN FLOW TO 10L OXIMYZER FOR PROCEDURE, REDUCED NOW TO 8L OXIMYZER. ENCOURAGED USE OF THE INCENTIVE SPIROMETER. ST ON MONITOR, HR 100'S, AMIODARONE STOPPED AT 1030 THIS MORNING, SBP 90'S. POOR APPETITE, C/O NAUSEA/GAGGING WITH COUGHING. VOIDS PER URINAL, DARK YELLOW. CHIN IS REDDENED BUT DENIES PAIN. C/O MILD PAIN WITH DEEP INSPIRATION TO RIGHT UPPER ABDOMEN/LOWER LUNG AREA, ATIVAN HAS BEEN HELPING. RIGHT FEMORAL CENTRAL LINE AND LEFT FOREAR 18G INFUSING NS AT TKO AND ANTIBIOTICS. VANCO TROUGH LOW TODAY, VANCO IV DOSE INCREASED.
--- NOTE | 2019-01-23 19:15 | NUR ---
ASSUMING CARE OF PT AT THIS TIME. PT REPORT RECEIVED AT BEDSIDE WITH OFFGOING NURSE, RIKI ANNE. PT LAYING IN BED, WATCHING TELEVISION, AND VISITING WITH FAMILY MEMBERS. VS STABLE - SEE VS FS. PT DOES NOT APPEAR TO BE IN DISTRESS AT THIS TIME. WILL REVIEW PLAN OF CARE.
--- NOTE | 2019-01-23 19:30 | NUR ---
ASSESSMENT PT CALM, QUIET, COOPERATIVE, RESPONDS TO VERBAL STIMULI, SPONT OPENS EYES, A&O X4, TALKS AND ANSWERS QUESTIONS APPROPRIATELY, OCC ANXIETY (PT STATES THAT PRN ATIVAN REDUCES ANXIETY), FLAT AFFECT. SENSATION INTACT. DENIES N/T. PT DÍAZ. GENERALIZED WEAKNESS. PT REPOSITIONS SELF IN BED. PT C/O PAIN IN "SIDES D/T COUGHING". TYLENOL ADMINSITERED AND UTILIZED NONPHARM METHODS FOR PAIN/DISCOMFORT. UPPER AND MIDDLE LOBES CLEAR, CRACKLES AND DIMISHED LOWER LOBES. SHALOW BREATHING. PT ON 8L OXYMIZER. OXY SAT 90%. RR 20'S. DENIES SOB AT REST. DYSPNEA WITH EXERTION. ENCOURAGING PT TO UTILIZE IS. OCC PRODUCTIVE COUGH: MODERATE AMOUNTS OF THICK WHITE SECRETIONS. PT UTILIZES SUCTION INDICATED. TEMP 100.3: TYLENOL PRN, DECREASED ROOM TEMP, REMOVED BLANKETS, FAN ON. ST. HR 100'S TO 110'S. BP STABLE - SEE VS FS. STRONG RADIAL AND PEDAL PULSES, FAAINT TIBIAL PULSES. WARM, PALE, DIAPHORETIC SKIN. HYPOACTIVE BT X4 QUADRANTS. ABD MILD DIST (PT STATES ABD DIST IS NORMAL), SOFT, NONTENDER. POOR APPETITE. NAUSEA WITH GAG REFLEX WHILE COUGHING. ZOFRAN ADMINISTERED PER PT REQUEST. NO BM. PT TOLERATING PO WATER. PT VOIDS IN URINAL WITHOUT ASSISTANCE. NO UO AT THIS TIME. CL R GROIN. NS TKO AT 10 ML/HR.
[2019-01-24 01:07] LABS: HIV SCREEN 4TH GENERATION WRFX Non Reactive (Non Reactive)
[2019-01-24 03:32] LABS: Hematocrit 29.9 % (37.0-53.0); Hemoglobin 10.4 g/dL (13.5-17.5); Mean Corpuscular HGB Conc 34.8 g/dL (31.5-36.5); Mean Corpuscular Volume 89 fL (80-100); Mean Platelet Volume 9.8 fL (9.1-12.4); Platelet Count 97 K/mm3 (150-400); RDW Coefficient Variation 14.5 % (11.7-14.2); RDW Standard Deviation 47.6 fL (35.1-46.3); Red Blood Cell Count 3.35 M/mm3 (4.30-5.90); White Blood Cell Count 24.12 K/mm3 (4.00-11.30)
[2019-01-24 03:48] LABS: Alanine Aminotransfer (ALT/SGP 30 U/L (12-78); Albumin, Blood 1.1 g/dL (3.4-5.0); Albumin/Globulin Ratio 0.3 (0.8-1.8); Alk Phos 94 U/L (50-136); Anion Gap 8 mmol/L (6-16); Aspartate Aminotrans (AST/SGOT 67 U/L (12-37); Bilirubin, Total 2.1 mg/dL (0.1-1.0); Blood Urea Nitrogen 31 mg/dL (8-24); Bun/Creatinine Ratio 27.9 (12.0-20.0); CO2, Blood 29 mmol/L (21-32); Calcium, Blood 6.9 mg/dL (8.5-10.1); Chloride, Blood 100 mmol/L (98-108); Creatinine, Blood 1.11 mg/dL (0.60-1.20); Globulin, Blood 3.6 g/dL (2.2-4.0); Glomerular Filtration Rate >60 (60-); Glucose, Blood 99 mg/dL (70-99); Magnesium, Blood 2.3 mg/dL (1.6-2.4); Phosphorus, Blood 3.7 mg/dL (2.5-4.9); Potassium, Blood 3.4 mmol/L (3.5-5.5); Sodium, Blood 137 mmol/L (136-145); Total Protein, Blood 4.7 g/dL (6.4-8.2)
[2019-01-24 04:14] LABS: BAND PERCENT MAN 8 % (0-8); BASOPHILS PERCENT MAN 0 % (0-2); EOSINOPHILS PERCENT MAN 0 % (0-6); LYMPHOCYTES ABSOLUTE MAN 0.24 K/mm3 (0.84-5.20); LYMPHOCYTES PERCENT MAN 1 % (21-46); METAMYELOCYTE ABSOLUTE MAN 0.24 K/mm3 (0.00-0.00); METAMYELOCYTE PERCENT MAN 1 % (0-0); MONOCYTES ABSOLUTE MAN 0.24 K/mm3 (0.16-1.47); MONOCYTES PERCENT MAN 1 % (4-13); MYELOCYTE ABSOLUTE MAN 0.24 K/mm3 (0.00-0.00); MYELOCYTE PERCENT MAN 1 % (0-0); NEUTROPHILS ABSOLUTE MAN 23.15 K/mm3 (1.96-9.15); SEG NEUTROPHILS PERCENT MAN 88 % (41-73); TOTAL CELLS COUNTED 100
--- NOTE | 2019-01-24 04:28 | NUR ---
SHIFT ASSESSMENT NO ACUTE CHANGES NOTED T/O SHIFT. PT SLEPT APPROXIMATELY HALF OF SHIFT. PT CURRENTLY SLEEPING. PT CALM, QUIET, COOPERATIVE, RESPONDS TO VERBAL STIMULI, SPONT OPENS EYES, A&O X4, TALKS AND ANSWERS QUESTIONS APPROPRIATELY, OCC ANXIETY (PT STATES THAT PRN ATIVAN RESOLVES ANXIETY), FLAT AFFECT. SENSATION INTACT. DENIES N/T. PT DÍAZ. GENEARLIZED WEAKNESS. PT REPOSITIONS SELF IN BED. PT C/O PAIN IN "SIDES D/T COUGHING" THAT RESOLVED WITH TYLENOL AND NONPHARM METHODS. UPPER AND MIDDLE LOBES CLEAR, CRACKLES AND DIMINISHED LOWER LOBES. SHALLOW BREATHING. PT ON 10L OXYMIZER. TITRATED OXYMIZER TO MAINTAIN SPO2 90% AND GREATER. RR 20'S TO 30'S. DENIES SOB AT REST. DYSPNEA WITH EXERTION. ENCOURAGE PT TO UTILIZE IS. OCC PRODUCTIVE COUGH: MOD AMOUNTS OF THICK WHITE SECRETIONS. PT UTILIZED SUCTION INDICATED. TMAX 100.3 THAT RESOLVED WITH TYLENOL PRN, DECREASED ROOM TEMP, REMOVED BLANKETS, FAN ON. SR TO ST. HR 90'S TO 110'S. BP STABLE - SEE VS FS. STRONG RADIAL AND PEDAL PULSES, FAINT TIBIAL PULSES. WARM, PALE, DIAPHORETIC SKIN. HYPOACTIVE BT X4 QUADRANTS. ABD MILD DIST (PT STATES ABD DIST IS NORMAL), SOFT, NONTENDER. POOR APPETITE. NAUSEA RESOLVED WITH ZOFRAN. NO BM. PT TOLERATED PO ATER. PT USES URINAL WITHOUT ASSISTANCE. NO UO. CL R GROIN. NS TKO AT 1O ML/HR. WILL CONT TO MONITOR PT AND WILL PROVIDE BEDSIDE REPORT TO ONCOMING NURSE THIS AM.
--- NOTE | 2019-01-24 04:47 | NUR ---
DR. MASCORRO INFORMED DR. MASCORRO OF AM LABS. DR. MASCORRO ORDERED KCL 40 MEQ PO. WAITING FOR VERIFICATION OF MEDICATION FROM PHARMACY AT THIS TIME.
--- NOTE | 2019-01-24 08:15 | NUR ---
ASSUMED CARE: REPORT RECEIVED FROM MURALI Burdick RN. ASSUMED CARE OF THIS PT AT APPROX 0700. ON ASSESSMENT, PT IS AWAKE, SITTING UP IN BED. HE DENIES PAIN OR NEEDS THIS AM. PT ABLE TO SWALLOW SCHEDULED PO MEDS W/ APPLESAUCE BUT VOMITED THEM UP SHORTLY AFTER. PT CONTINUALLY GAGS ON SPUTUM & ANY PO INTAKE ATTEMPTS. 10L OXYMIZER W/ 02 SATS >88%. PT HAS PRODUCTIVE COUGH BUT IS UNABLE TO EXPECTORATE COMPLETELY. MONITOR SHOWS ST W/ HR 100s, BP STABLE. HE IS UNMOTIVATED & SHOWS LITTLE INTEREST IN COMPLETING ANY TASKS, SUCH USING I.S. OR FEEDING SELF. CONTINUED ENCOURAGEMENT IS NECESSARY FOR ANY SELF CARE/ADLs TO OCCUR. WILL CONTINUE TO MONITOR & UPDATE NEEDED.
--- NOTE | 2019-01-24 11:39 | NUR ---
DR. WINTERS: PROVIDER AT BEDSIDE TO SEE PT. ORDERS HAVE BEEN PLACED. PLAN IS TO DIURESE & REPLETE POTASSIUM, PT VOMITED UP MOST OF BREAKFAST & AM MEDS. ORDERS ALSO PLACED FOR CPT. R FEMORAL CENTRAL LINE TO BE REMOVED TODAY AFTER PERIPHERAL ACCESS ACHEIVED, TIP OF CENTRAL LINE TO BE CULTURED R/T PERSISTANT BACTEREMIA. PICC LINE TO BE PLACED AFTER 24 HRS W/ NO CENTRAL LINE. WILL CONTINUE TO MONITOR & UPDATE NEEDED.
[2019-01-24 15:00] LABS: Vancomycin, Trough 15.7 ug/mL (5.0-10.0)
--- NOTE | 2019-01-24 18:22 | NUR ---
SHIFT SUMMARY: NO ACUTE CHANGES SINCE INITIAL ASSESSMENT. PT A&O, PLEASANT & COOPERATIVE. HE HAS BEEN WILLING TO COMPLETE BREATHING EXERCISES & SAT UP IN THE CHAIR FOR MOST OF THE DAY WELL. LS REMAIN DIM T/O W/ CRACKLES IN BASES. PT NOW ON AIRVO, SETTINGS 60 L/MIN & 65% FIO2. HE CONTINUES COUGHING UP SMALL AMNTS OF THICK WHITE SPUTUM & IS USING YANKAUR TO ORAL SUCTION. MONITOR SHOWS ST W/ HR 100s, BP STABLE. REGLAN PER EMAR THIS EVENING FOR NAUSEA, PT STS IT HAS HELPED RELIEVE HIS NAUSEA BETTER THAN THE ZOFRAN DID. HE CONTINUES HAVING GAGGING & OCCASIONAL VOMITING R/T THIS. VOIDING DARK YELLOW URINE USING URINAL W/O DIFFICULTY. CHIN REMAINS RED R/T CELLULITIS BUT PT STS IS NOT PAINFUL. HE DOES HAVE C/O PAIN TO RIBS & "SIDES" R/T CONTINUED COUGHING. REBLEED EXPERIENCED x1 FROM CENTRAL LINES SITE AFTER PT HAD A COUGHING FIT SHORTLY AFTER LINE REMOVAL. MANUAL PRESSURE HELD FOR AN ADDITIONAL 10 MINS & PT ENCOURAGE TO APPLY MANUAL PRESSURE WHEN HAVING COUGHING EPISODES. THE AREA HAS REMAINED FREE OF BLEEDING SINCE THAT TIME. WILL CONTINUE TO MONITOR & REPORT OFF TO ONCOMING RN.
--- NOTE | 2019-01-24 19:15 | NUR ---
ASSUMING CARE OF PT AT THIS TIME. PT REPORT RECEIVED AT BEDSIDE WITH OFFGOING NURSE, BERNARDO ANNE. PT LAYING IN BED AND WATCHING TELEVISION UPON ENTERING THE ROOM. VS STABLE - SEE VS FS. PT DOES NOT APPEAR TO BE IN DISTRESS AT THIS TIME. WILL REVIEW PLAN OF CARE.
--- NOTE | 2019-01-24 19:30 | NUR ---
ASSESSMENT PT CALM, QUIET, COOPERATIVE, RESPONDS TO VERBAL STIMULI, SPONT OPENS EYES, A&O X4, TALKS AND ANSWERS QUESTIONS APPROPRIATELY, OCC ANXIETY (PRN ATIVAN ADMINISTERED), FLAT AFFECT, WITHDRAWN. SENSATION INTACCT. DENIES N/T. PT DÍAZ. GENERALIZED WEAKNESS. PT REPOSITIONS SELF IN BED. PT C/O PAIN IN "RIB CAGE D/T COUGHING". TYLENOL ADMINISTERED AND UTILIZED NONPHARM METHODS FOR PAIN/DISCOMFORT. COARSE T/O, DIMINISHED LOWER LOBES. SHALLOW BREATHING. PT ON AIRVO: 60L, FIO2 65%. OXY SAT 90% AND GREATER. RR 30'S. DENIES SOB AT REST. DYSPNEA WITH EXERTION. PT USING IS WITHOUT REINFORCEMENT. OCC PRODUCTIVE COUGH: MODERATE AMOUNTS OF THICK WHITE SECRETIONS. PT UTILIZES SUCTION INDICATED. TEMP 99.2: TYLENOL PRN, ROOM TEMP DECREASED, REMOVED BLANKETS, FAN ON. ST. HR 110'S. BP STABLE - SEE VS FS. STRONG RADIAL AND PEDAL PULSES. FAINT TIBIAL PULSES. WARM, PALE, DIAPHORETIC SKIN. HYPOACTIVE BT X4 QUADRANTS. ABD MILD DIST (PT STATES ABD DIST IS NORMAL), SOFT, NONTENDER. POOR APPETITE. OVERACTIVE GAG. N/V. ZOFRAN ADMINISTERED. NO BM. PT TOLERATING PO WATER AND ENSURE. PT VOIDS IN URINAL WITHOUT ASSIATNACE. PARUL COLORED URINE NOTED. CL R GROIN REMOVED THIS AM: DRESSING C/D/I, SITE WNL EXCEPT SLIGHT TENDERNESS WITH PALPATION (SEE SHIFT ASSESSMENT). N S TKO AT 10 ML/HR.
--- NOTE | 2019-01-25 00:55 | NUR ---
DR. DIAZ PT ANXIOUS & RESTLESS IN BED. ATIVAN ADMINSITERED PER PHYSICIAN'S ORDER T/O SHIFT. RR INCREASED 40'S. CONT TO TIRRATE FIO2 TO MAINTAIN SPO2 90% AND GREATER. AIRVO AT 60L, FIO2 86%. CALLED DR. DIAZ AT THIS TIME AND UPDATED DR. DIAZ OF PT'S STATUS. DR. DIAZ ORDERED ATIVAN 1 MG IV NOW. WAITING FOR VERIFICATION OF MEDICATION FROM PHARMACY AT THIS TIME.
[2019-01-25 03:22] LABS: Base Excess Venous 6.5 mmol/L; Bicarbonate Venous 29.3 mmol/L (24.0-30.0); PCO2 Venous 44.3 mmHg (38-42); PO2 Venous 41.8 mmHg (38-42); pH Blood Venous 7.45 (7.34-7.37)
[2019-01-25 03:24] LABS: Hematocrit 28.6 % (37.0-53.0); Mean Corpuscular HGB 31.2 pg (26.0-34.0); Mean Corpuscular Volume 89 fL (80-100); Mean Platelet Volume 9.5 fL (9.1-12.4); Platelet Count 105 K/mm3 (150-400); RDW Coefficient Variation 14.3 % (11.7-14.2); RDW Standard Deviation 46.5 fL (35.1-46.3); Red Blood Cell Count 3.21 M/mm3 (4.30-5.90); White Blood Cell Count 23.15 K/mm3 (4.00-11.30)
[2019-01-25 03:46] LABS: Anion Gap 8 mmol/L (6-16); Blood Urea Nitrogen 25 mg/dL (8-24); Bun/Creatinine Ratio 26.2 (12.0-20.0); CO2, Blood 30 mmol/L (21-32); Calcium, Blood 6.8 mg/dL (8.5-10.1); Chloride, Blood 96 mmol/L (98-108); Creatinine, Blood 0.96 mg/dL (0.60-1.20); Glomerular Filtration Rate >60 (60-); Glucose, Blood 94 mg/dL (70-99); Magnesium, Blood 2.2 mg/dL (1.6-2.4); Phosphorus, Blood 2.9 mg/dL (2.5-4.9); Potassium, Blood 3.6 mmol/L (3.5-5.5); Sodium, Blood 134 mmol/L (136-145)
--- NOTE | 2019-01-25 04:36 | NUR ---
SHIFT ASSESSMENT PT SLEPT T/O SHIFT. PT CALM, QUIET, COOPERATIVE, RESPONDS TO VERBAL STIMULI, SPONT OPENS EYES, A&O X4, TALKS AND ANSWERS QUESTIONS APPROPRAITELY, OCC ANXIETY (PT STATES THAT ATIVAN RESOLVES ANXIETY), FLAT AFFECT, WITHDRAWN. SENSATION INTACT. DENIES N/T. PT DÍAZ. GENERALIZED WEAKNESS. PT REPOSITIONS SELF IN BED. PT C/O PAIN IN "RIB CAGE D/T COUGHING". PAIN RESOLVED AFTER ADMINISTERING TYLENOL AND UTILIZING NONPHARM METHODS. LUNGS COARSE T/O, DIMINISHED LOWER LOBES. SHALLOW BREAHTING. PT ON AIRVO: 60L, FIO2 72%. CONT TO TITRATE FIO2 TO MAINTAIN SPO2 90% AND GREATER. RR 20'S TO 40'S. DENIES SOB AT REST. DYSPNEA WITH EXERTION. PT USING IS AND FV WITHOUT REINFORCEMENT. OCC PRODUCTIVE COUGH: MODATE AMOUNTS OF THICK WHITE SECRETIONS TO THIN CLEAR/WHITE SECRETIONS. PT UTILIZES SUCTION INDICATED. TMAX 101.2: TYLENOL PRN, ROOM TEMP DECREASED, BLANKETS OFF, FANS ON, ICE PACKS ON. ST. HR 100'S TO 120'S. BP STABLE - SEE VS FS. STRONG RADIAL AND PEDAL PULSES. FAINT TIBIAL PULSES. WARM, PALE, DIAPHORETIC SKIN. HYPOACTIVE BT X4 QUADRANTS. ABD MILD DIST (PT STATES ABD DIST IS NORMAL), SOFT, NONTENDER. POOR APPETITE. OVERACTIVE GAG. N/V T/O SHIFT. CONT TO ADMINISTER ZOFRAN AND REGLAN PER EMAR. PT STATES ZOFRAN AND REGLAN RESOLVED NAUSEA. NO VOMITING AT THIS TIME. NO BM. PT OCC TOLERATING PO WATER AND ENSURE. PT VOIDS IN URINAL WITHOUT ASSISTANCE. PARUL COLORED URINE NOTED. CL R GROIN REMOVED YESTERDAY: DRESSING C/D/I, SITE WNL EXCEPT SLIGHT TENDERNESS WITH PALPATION (SEE SHIFT ASSESSMENT). NS TKO AT 10 ML/HR. POWERGLIDE CAMILLE. WILL CONT TO MONITOR PT AND WILL PROVIDE BEDSIDE REPORT TO ONCOMING NURSE THIS AM.
--- NOTE | 2019-01-25 08:50 | NUR ---
ASSUMED CARE: REPORT RECEIVED FROM MURLAI Burdick RN. ASSUMED CARE OF THIS PT AT APPROX 0700. ON ASSESSMENT, THE PT IS A&O, SITTING UP IN BED. HE IS COOPERATIVE W/ CARE AT THIS TIME & WILLING TO COMPLETE BREATHING EXERCISES & MOBILIZE BY GETTING OOB TODAY. HE HAS C/O RIB PAIN R/T CONTINUED COUGHING, MEDS PER EMAR PRN. PT USING AIRVO AT 60 L/MIN & 75% FIO2. CPT COMPLETED THIS AM BY RT. PT STS HE IS COUGHING, BUT NOT EXPECTORATING MUCH SPUTUM. MONITOR SHOWS ST, HR 100s. BP STABLE. PT HAS POOR APPETITE & CONTINUED C/O NAUSEA INTERMITTENTLY, MEDS PER EMAR. HE IS VOIDING SMALL AMNTS OF DARK YELLOW URINE USING THE URINAL. DUE TO CONTINUED EMESIS, THE PT MAY NEED IVFs FOR HYDRATION. CHIN REMAINS RED BUT PT STS IS NOT PAINFUL AT THIS TIME. WILL CONTINUE TO MONITOR & UPDATE NEEDED.
--- NOTE | 2019-01-25 15:02 | NUR ---
UPDATE: VICENTE Frias RN, TO ROOM FOR PT C/O "DIFFICULTY BREATHING" & LOW O2 SAT OF 87%. STEFAN Jj, RT, CALLED TO ROOM WELL. PT REMAINS ON AIRVO; 60 L/MIN & 90% FIO2. BREATHING TX INITIATED & PT NOW BREATHING MORE EASILY. WILL CONTINUE TO MONITOR & UPDATE NEEDED.
--- NOTE | 2019-01-25 18:10 | NUR ---
SHIFT SUMMARY: PT REMAINS A&O, COOPERATIVE W/ CARE. NO ACUTE CHANGES SINCE PRIOR UPDATES. HE IS NOW USING BIPAP 16/8 W/ 20L O2 BLEED-IN. THE PT IS TOLERATING THIS WELL & RESTING QUIETLY AT THIS TIME. LS REMAIN COARSE T/O, DIM IN BASES. PT STS COUGHING IS PAINFUL BUT HAS BEEN ABLE TO COMPLETE CPT & BREATHING EXERCISES DURING THIS SHIFT. MONITOR SHOWS ST W/ HR 110s. BP STABLE. PT CONTINUES HAVING A POOR APPETITE & VERY MINIMAL PO INTAKE. HE IS TO BE NPO AFTER MN FOR ABD US IN AM. MEDS PER EMAR FOR OCCASIONAL N/V. VOIDS W/O DIFFICULTY USING URINAL. WILL CONTINUE TO MONITOR & REPORT OFF TO ONCOMING RN.
--- NOTE | 2019-01-25 19:15 | NUR ---
ASSUMING CARE OF PT AT THIS TIME. PT REPORT RECEIVED AT BEDSIDE WITH OFFGOING NURSE, BERNARDO ANNE. PT LAYING IN BED AND SLEEPING UPON ENTERING THE ROOM. VS STABLE - SEE VS FS. PT DOES NOT APPEAR TO BE IN DISTRESS AT THIS TIME. WILL REVIEW PLAN OF CARE.
--- NOTE | 2019-01-25 19:30 | NUR ---
ASSESSMENT PT CALM, QUIET, COOPERATIVE, RESPONDS TO VERBAL STIMULI, SPONT OPENS EYES, A&O X4, TALKS AND ANSWERS QUESTIONS APPROPRIATELY, LESS ANXIETY THIS PM, FLAT AFFECT, WITHDRAWN, LETHARGIC, QUICKLY FALLS BACK ASLEEP WITH DECREASED STIMULI. SENSATION INTACT. DENIES N/T. PT DÍAZ. GENERALIZED WEAKNESS. PT ABLE TO REPOSITION SELF IN BED. PT DENIES PAIN/DISCOMFORT. NO S/SX OF PAIN/DISCOMFORT NOTED. COARSE T/O, DIMINISHED LOWER LOBES. SHALLOW BREATHING. PT ON BIPAP 16/8, 20L OXYGEN. OXY SAT >90%. RR 30'S. PER DR. WINTERS'S REQUEST, WAITING FOR RT TO SWITCH OUT BIPAP MACHINES AT THIS TIME. DYSPNEA WITH EXERTION. PT USES IS AND FV WITH REINFORCEMENT. OCC PRODUCTIVE COUGH. PT CONT TO C/O COUGHING MODERATE AMOUNTS OF THICK WHITE SECRETIONS. PT UTILIZES SUCTION INDICATED. TEMP 100.2: TYLENOL PRN (TYLENOL ADMINSITERED PRIOR TO ONCOMING SHIFT), ROOM TEMP DECREASED, BLANKETS OFF, FAN ON. ST. HR 110'S. BP STABLE - SEE VS FS. STRONG RADIAL AND PEDAL PULSES. FAINT TIBIAL PULSES. WARM, PALE, DIAPHORETIC SKIN. EDEMA NOTED. HYPOACTIVE BT X4 QUADRANTS. ABD MILD DIST (PT STATES ABD DIST IS NORMAL), SOFT, NONTENDER. POOR APPETITE. OVERACTIVE GAG. NO N/V. NO BM. PT TOLERATING PO WATER. NPO AT MIDNIGHT. PT VOIDS IN URINAL WITHOUT ASSISTANCE. PARUL COLORED URINE. CL R GROIN REMOVED YESTERDAY: DRESSING C/D/I, SITE WNL EXCEPT SLIGHT TENDERNESS WITH PALATION. NS TKO AT 10 ML/HR PUT ON STANDBY. PICC BAY. POWERGLIDE CAMILLE.
[2019-01-26 03:24] LABS: BASOPHILS ABSOLUTE AUTO 0.05 K/mm3 (0.00-0.23); BASOPHILS PERCENT AUTO 0 % (0-2); EOSINOPHILS ABSOLUTE AUTO 0.04 K/mm3 (0.00-0.68); EOSINOPHILS PERCENT AUTO 0 % (0-6); Hematocrit 26.1 % (37.0-53.0); IMMATURE GRAN ABSOLUTE AUTO 1.46 K/mm3 (0.00-0.10); IMMATURE GRAN PERCENT AUTO 6 % (0-1); LYMPHOCYTES ABSOLUTE AUTO 0.79 K/mm3 (0.84-5.20); LYMPHOCYTES PERCENT AUTO 3 % (21-46); MONOCYTES PERCENT AUTO 2 % (4-13); Mean Corpuscular HGB 30.4 pg (26.0-34.0); Mean Corpuscular HGB Conc 34.5 g/dL (31.5-36.5); Mean Corpuscular Volume 88 fL (80-100); Mean Platelet Volume 9.4 fL (9.1-12.4); NEUTROPHILS ABSOLUTE AUTO 21.82 K/mm3 (1.96-9.15); NEUTROPHILS PERCENT AUTO 89 % (41-73); Platelet Count 118 K/mm3 (150-400); RDW Coefficient Variation 13.9 % (11.7-14.2); RDW Standard Deviation 44.9 fL (35.1-46.3); Red Blood Cell Count 2.96 M/mm3 (4.30-5.90); White Blood Cell Count 24.56 K/mm3 (4.00-11.30)
[2019-01-26 03:43] LABS: Alanine Aminotransfer (ALT/SGP 34 U/L (12-78); Albumin, Blood 1.1 g/dL (3.4-5.0); Albumin/Globulin Ratio 0.3 (0.8-1.8); Alk Phos 102 U/L (50-136); Anion Gap 9 mmol/L (6-16); Aspartate Aminotrans (AST/SGOT 83 U/L (12-37); Bilirubin, Indirect 0.4 mg/dL (0.1-0.7); Bilirubin, Total 1.4 mg/dL (0.1-1.0); Blood Urea Nitrogen 22 mg/dL (8-24); Bun/Creatinine Ratio 20.6 (12.0-20.0); CO2, Blood 31 mmol/L (21-32); Calcium, Blood 6.6 mg/dL (8.5-10.1); Chloride, Blood 92 mmol/L (98-108); Creatinine, Blood 1.07 mg/dL (0.60-1.20); Glomerular Filtration Rate >60 (60-); Glucose, Blood 108 mg/dL (70-99); Potassium, Blood 3.4 mmol/L (3.5-5.5); Sodium, Blood 132 mmol/L (136-145); Total Protein, Blood 5.1 g/dL (6.4-8.2)
[2019-01-26 03:47] LABS: BAND PERCENT MAN 2 % (0-8); BASOPHILS PERCENT MAN 0 % (0-2); EOSINOPHILS PERCENT MAN 0 % (0-6); LYMPHOCYTES ABSOLUTE MAN 1.22 K/mm3 (0.84-5.20); LYMPHOCYTES PERCENT MAN 5 % (21-46); MONOCYTES ABSOLUTE MAN 0.24 K/mm3 (0.16-1.47); MONOCYTES PERCENT MAN 1 % (4-13); NEUTROPHILS ABSOLUTE MAN 23.08 K/mm3 (1.96-9.15); SEG NEUTROPHILS PERCENT MAN 92 % (41-73); TOTAL CELLS COUNTED 100
--- NOTE | 2019-01-26 04:21 | NUR ---
SHIFT ASSESSMENT NO ACUTE CHANGES NOTED T/O SHIFT. PT CALM, QUIET, COOPERATIVE, RESPONDS TO VERBAL STIMULI, SPONT OPENS EYES, A&O X4, TALKS AND ANSWERS QUESTIONS APPROPRIATELY, LESS ANXIETY THIS PM. PT REFUSED ATIVAN PRN. FLAT AFFECT, WITHDRAWN, LETHARGIC, QUICKLY FALLS BACK ASLEEP WITH DECREASED STIMULI. SENSATION INTACT. DENIES N/T. PT DÍAZ. GENERALIZED WEAKNESS. PT ABLE TO REPOSITION SELF, BUT REQUIRED ENCOURAGEMENT. PT DENIED PAIN/DISCOMFORT. NO S/SX OF PAIN/DISCOMFORT NOTED. LUNGS COARSE T/O, DIMINISHED LOWER LOBES. SHALLOW BREATHING. PT ON BIPAP 16/8, FIO2 55%. CONT TO TITRATE FIO2 TO MAINTAIN SPO2 90% AND GREATER. OXY SAT <90% WITH EXERTION. RR 20'S TO 30'S. DYSPENA WITH EXERTION. PT USES IS AND FV WITH ENCOURAGEMENT. OCC PRODUCTIVE COUGH: MOD AMOUNTS OF THICK WHITE SECRETIONS. PT UTILIZED SUCTION INDICATED. TMAX 100.2: TYLENOL ADMINSITERED PRN, ROOM TEMP DECREASED, BLANKETS OFF, FANS ON. ST. HR 100'S TO 110'S. BP STABLE - SEE VS FS. STRONG RADIAL PULSES AND PEDAL PULSES. FAINT TIBIAL PULSES. WARM, PALE, DIAPHORETIC SKIN. EDEMA NOTED. HYPOACTIVE BT X4 QUADRANTS. ABD MILD DIST (PT STATES ABD DIST IS NORMAL), SOFT, NONTENDER. POOR APPETITE. NPO AT MIDNIGHT. OVERACTIVE GAG. NAUSEA AND VOMITING T/O SHIFT: ZOFRAN AND REGLAN ADMINISTERED. YELLOW TO LIGHT BROWN EMESIS NOTED. NO BM. PT VOIDED IN URINAL WITHOUT ASSISTANCE. PARUL COLORED URINE. R GROING SITE: DRESSING C/D/I, SITE WNL EXCEPT SLIGHT TENDERNESS WITH PALPATION. NS TKO AT 10 ML/HR. PICC BAY. POWERGLIDE CAMILLE. WILL CONT TO MONITOR PT AND WILL PROVIDE BEDSIDE REPORT TO ONCOMING NURSE THIS AM.
--- NOTE | 2019-01-26 04:56 | NUR ---
DR. WINTERS CALLED DR. WINTERS AT THIS TIME. INFORMED DR. WINTERS OF AM LABS. DR. WINTERS ORDERED KCL 20 MEQ IV NOW. WAITING FOR MEDICATION FROM PHARMACY AT THIS TIME.
[2019-01-26 05:51] LABS: PCO2 Arterial 40.5 mmHg (35-45); PO2 Arterial 63.4 mmHg (80-100); pH Blood Arterial 7.52 (7.35-7.45)
--- NOTE | 2019-01-26 08:15 | NUR ---
ASSUMED CARE: REPORT RECEIVED FROM MURALI Burdick RN. ASSUMED CARE OF THIS PT AT APPROX 0700. ON ASSESSMENT, THE PT IS RESTING QUIETLY IN BED. BIPAP IN PLACE, SETTINGS 16/8 & 55% FIO2. RR 30-40s. PT HAS TAKEN OFF BIPAP x1 THIS MORNING & QUICKLY DESATS TO THE LOW 70s. BIPAP REPLACED & PT ABLE TO RECOVER SATS TO > 88% SLOWLY. MONITOR SHOWS ST, HR 100-110s. BP STABLE. OCCASIONAL C/O NAUSEA, MEDS PER EMAR PRN. ABD US IS BEING COMPLETED AT THIS TIME, PT HAS BEEN NPO SINCE MN. WILL CONTINUE TO MONITOR & UPDATE NEEDED.
--- NOTE | 2019-01-26 13:54 | NUR ---
CALL FROM [facility]: CALL FROM ZION Frias IN [facility]. HE ASKS IF THE PT WILL BE ABLE TO FOLLOW COMMANDS & BE REMOVED FROM THE BIPAP FOR THE VQ SCAN. ALTHOUGH THE PT DOES FOLLOW SOME COMMANDS, IT IS INTERMITTENT & UNPREDICTABLE IF SHE WILL BE ABLE TO DURING THE STUDY. THE PT ALSO DOES NOT TOLERATE BEING OFF OF THE BIPAP FOR MORE THAN 2-3 MINS W/O DESATS. WILL DISCUSS THIS W/ DR. WINTERS & UPDATE.
[2019-01-26 14:50] LABS: Source, Urine Catheter
[2019-01-26 14:56] LABS: Bilirubin, Urine Neg (Neg); Blood, Urine 1+ (Neg); Glucose Qualitative, Urine Neg (Neg); Ketones, Urine Neg (Neg); Leukocyte Esterase, Urine Neg (Neg); Nitrite, Urine Neg (Neg); Protein, Urine Neg (Neg); Specific Gravity, Urine 1.025 (1.003-1.022); Urobilinogen, Urine NORM (Normal)
[2019-01-26 15:15] LABS: Appearance, Urine Cloudy (Clear); Color, Urine Yellow (P-Yellow)
[2019-01-26 15:23] LABS: Red Blood Cells, Urine 0-2 /hpf (0-2); Squamous Epithelial Cells Not Seen /hpf (Few); Uric Acid Crystals Mod /hpf; White Blood Cells, Urine 0-2 /hpf (0-5)
[2019-01-26 15:24] LABS: Bacteria Few /hpf
[2019-01-26 15:50] LABS: International Normalized Ratio 1.19; Prothrombin Time Results 12.4 Sec (9.7-11.5)
[2019-01-26 16:03] LABS: PCO2 Arterial 56.4 mmHg (35-45); PO2 Arterial 94.6 mmHg (80-100); pH Blood Arterial 7.29 (7.35-7.45)
--- NOTE | 2019-01-26 19:15 | NUR ---
ASSUMED CARE OF PT, REPORT RCV'D FROM DAYANA CHANG. PT INTUBATED AND SEDATED. VENT SETTINGS AC 22/400/15/60%, SATS IN THE LOW 90'S. OGT TO LIS. PICC BAY, POWERGLIDE CAMILLE. LEVOPHED 30 MCG/MIN, VASOPRESSIN 0.04 UNITS/MIN, PROPOFOL 60 MCG/KG/MIN, HEPARIN 15 UNITS/HR. PT UNRESPONSIVE TO VERBAL STIMULI BUT WITHDRAWS TO PAINFUL STIMULUS. PT TEMP 99.9, BLANKETS REMOVED AND FAN IN PLACE. HALL TEMP PATENT AND DRAINING TO GRAVITY. CHEST TUBE LOCATED RIGHT UPPER CHEST TO SUCTION, MINIMAL AMOUNT OF BLOODY DRAINAGE NOTED. LUNG SOUNDS DIM T/O. PT'S S/O AND FAMILY AT BEDSIDE, UPDATED REGARDING STATUS. SEE FULL SHIFT ASSESSMENT.
--- NOTE | 2019-01-26 19:34 | NUR ---
UPDATE / SHIFT SUMMARY: AT APPROX 1415, THIS RN NOTES THAT PT's BIPAP HAS STARTED ALARMING. HE HAD TAKEN OFF THE BIPAP MASK & WAS GAGGING/DRY HEAVING. MEDS PER EMAR FOR NAUSEA. AT THAT TIME, DR. WINTERS CAME IN TO THE ROOM & DISCUSSED INTUBATION W/ THE PT BIPAP IS CONTRAINDICATED W/ VOMITING. IN APPROX ONE MINUTE OFF BIPAP, THE PT's O2 SATS DROPPED TO THE MID 70s. DECISION TO INTUBATE WAS MADE. RSI KIT & SUPPLIES GATHERED, DR. WINTERS AT BEDSIDE W/ JUSTIN C, RT. 20 MG ATOMIDATE GIVEN AT 1420, FOLLOWED BY 50 MG SUCCS AT 1421. INTUBATION COMPLETE AT 1422. 7.5 ETT & 24 CM AT TEETH. INITIAL VENT SETTINGS: AC 22, TV 380, PEEP 12 & FIO2 100%. VENT SETTINGS ADJUSTED AT 1435 FOR CONTINUED LOW O2 SATS: 22/400/16/100% OGT TUBE PLACED W/O DIFFICULTY. CXR COMPLETED, DR. WINTERS REVIEWED AT BEDSIDE. DETERMINED THAT ETT SHOULD BE ADVANCED, OGT PLACEMENT CORRECT. ETT ADVANCED TO 25 CM AT THE TEETH AT 1454 & VERIFIED PLACEMENT W/ CXR. CHEST TUBE PLACED TO R ANTERIOR CHEST WALL BY DR. WINTERS, PLACED TO SUCTION PER ORDERS. VERIFIED W/ CXR. PT STARTED ON LEVOPHED & VASOPRESSIN TO MAINTAIN BP. PROPOFOL FOR SEDATION. NIMBEX x1 FOR CONTINUED HIGH RR & LOW O2 SATS. ATIVAN x1 FOR PT RESTLESSNESS W/ SEDATION INFUSING. PALLIATIVE CARE CONSULT PLACED FOR PT's INCREASED NEED FOR SUPPORT & ALTERNATIVE DECISION MAKER. HE STS THAT RAD, HIS GIRLFRIEND, IS TO BE HIS DECISION MAKER PRIOR TO BEING INTUBATED. FAMILY IS NOW AT BEDSIDE & SUPPORTIVE IN CARE AT THIS TIME. SINCE UPDATES, NO ACUTE CHANGES HAVE OCCURED. FLUID BOLUS PER EMAR FOR CONTINUED LOW BP. HEPARIN INFUSING PER PHARMACY MANAGEMENT. CHEST TUBE DRAINING W/ OUTPUT DOCUMENTED. HALL PATENT/DRAINING. REPORT HAS BEEN GIVEN TO SUDEEP Garcia RN TO ASSUME CARE.
[2019-01-27 04:32] LABS: Hematocrit 22.7 % (37.0-53.0); Hemoglobin 7.9 g/dL (13.5-17.5); Mean Corpuscular HGB 31.5 pg (26.0-34.0); Mean Corpuscular HGB Conc 34.8 g/dL (31.5-36.5); Mean Corpuscular Volume 90 fL (80-100); Mean Platelet Volume 9.6 fL (9.1-12.4); NRBC ABSOLUTE 0.04 K/mm3 (0.00-0.02); NRBC Auto 0.1 /100 WBC (0.0-0.2); Platelet Count 209 K/mm3 (150-400); RDW Coefficient Variation 14.3 % (11.7-14.2); RDW Standard Deviation 47.3 fL (35.1-46.3); Red Blood Cell Count 2.51 M/mm3 (4.30-5.90); White Blood Cell Count 28.65 K/mm3 (4.00-11.30)
[2019-01-27 04:47] LABS: International Normalized Ratio 1.15
[2019-01-27 04:50] LABS: Anion Gap 9 mmol/L (6-16); Blood Urea Nitrogen 28 mg/dL (8-24); Bun/Creatinine Ratio 20.9 (12.0-20.0); CO2, Blood 30 mmol/L (21-32); Calcium, Blood 6.4 mg/dL (8.5-10.1); Chloride, Blood 89 mmol/L (98-108); Creatinine, Blood 1.34 mg/dL (0.60-1.20); Glomerular Filtration Rate >60 (60-); Glucose, Blood 147 mg/dL (70-99); Magnesium, Blood 2.1 mg/dL (1.6-2.4); Phosphorus, Blood 3.7 mg/dL (2.5-4.9); Potassium, Blood 3.7 mmol/L (3.5-5.5); Sodium, Blood 128 mmol/L (136-145)
[2019-01-27 04:54] LABS: PCO2 Arterial 43.3 mmHg (35-45); pH Blood Arterial 7.46 (7.35-7.45)
[2019-01-27 05:07] LABS: BAND PERCENT MAN 7 % (0-8); BASOPHILS PERCENT MAN 0 % (0-2); EOSINOPHILS ABSOLUTE MAN 0.28 K/mm3 (0.00-0.68); EOSINOPHILS PERCENT MAN 1 % (0-6); LYMPHOCYTES ABSOLUTE MAN 2.29 K/mm3 (0.84-5.20); LYMPHOCYTES PERCENT MAN 8 % (21-46); METAMYELOCYTE ABSOLUTE MAN 0.57 K/mm3 (0.00-0.00); METAMYELOCYTE PERCENT MAN 2 % (0-0); MONOCYTES PERCENT MAN 0 % (4-13); NEUTROPHILS ABSOLUTE MAN 25.49 K/mm3 (1.96-9.15); SEG NEUTROPHILS PERCENT MAN 82 % (41-73); TOTAL CELLS COUNTED 100
--- NOTE | 2019-01-27 07:07 | NUR ---
SHIFT SUMMARY NO ACUTE CHANGES OVERNIGHT. PT WAS UNABLE TO TOLERATE REPOSITIONING AND WOULD DESAT QUICKLY TO THE LOW 70'S REQUIRING INCREASE IN PEEP AND FI02. PT RESPONDS TO PAIN BY WITHDRAWING. 400 ML DARK YELLOW URINARY OUTPUT. LEVOPHED 20 MCG/MIN, VASOPRESSIN 0.04 UNITS/MIN, PROPOFOL 55 MCG/KG/MIN, HEPARIN 17 UNITS. WILL REPORT TO DAYSHIFT NURSE.
--- NOTE | 2019-01-27 08:15 | NUR ---
INITIAL ASSESSMENT PATIENT LYING IN BED QUIETLY UPON ENTERING ROOM. FAMILY SLEEPING AT BEDSIDE. PATIENT INTUBATED AND SEDATED. PATIENT RESPONDING MINIMALLY TO PAINFUL STIMULI WITH GRIMACING OF FACE. NO RESPONSE NOTED IN ANY EXTREMITIES AT THIS TIME. PATIENT HAS TEMP OF 100.4 DEGREES FAHRENHEIT- BLANKETS OFF PATIENT, FAN ON. PATIENT HAS NO SIGNS/ SYMPTOMS OF PAIN NOTED AT THIS TIME. PATIENT ON VENT SETTINGS OF AC 22, TV 400, PEEP 15, 65% FIO2. LLL CLEAR, ALL OTHER LUNG LOBES DIMINISHED TO AUSCULTATION. MODERATE AMOUNT OF THICK, BLOOD STREAKED SPUTUM BEING SUCTIONED FROM ETT. PATIENT DESATS QUICKLY TO 70S WITH REPOSITIONING AND TAKES SEVERAL MINUTES ON 100% FIO2 TO RECOVER. CHEST TUBE IN PLACE TO RIGHT ANTERIOR CHEST WALL. CHEST TUBE TO -20 CM WALL SUCTION. PATIENT IN SR, HR IN THE 90S. BP STABLE ON PRESSORS. 1+ PULSES IN FEET. RADIAL PULSES 2+ IN STRENGTH. ANTI-EMBOLISM STOCKINGS IN PLACE. ABDOMEN MILDLY DISTENDED, SOFT, WITH TYMPANIC BOWEL SOUNDS NOTED. VITAL HIGH PROTEIN STARTED AT 15 MLS/ HOUR WITH 30 ML FREE WATER FLUSH Q4H. TEMP PROBE HALL DRAINING ADEQUATE AMOUNT OF ORANGE, CLOUDY URINE WITH SEDIMENT NOTED. PATIENT HAS SCATTERED BRUISES AND SCABS. CELLULITIS TO CHIN. OLD C.L. SITE IN R FEMORAL WITH DRESSING IN PLACE. HEPARIN INFUSING AT 19 UNITS/ KG/ HOUR, PROPOFOL AT 55 MCG/ KG/ MINUTE, LEVOPHED AT 10 MCG/ MINUTE, VASOPRESSIN AT 0.04 UNITS/ MINUTE, NS TKO. PATIENT RECEIVING CALCIUM GLUCONATE FOR REPLACEMENT FOR LEVEL OF 6.4 THIS AM. BED LOW, CALL LIGHT IN REACH. WILL CONTINUE TO MONITOR PATIENT FREQUENTLY THROUGHOUT SHIFT.
--- NOTE | 2019-01-27 12:14 | NUR ---
PATIENT RESTING QUIETLY. PT REMAINS INTUBATED AND SEDATED. PATIENT REMAINS GRIMACING SLIGHTLY TO PAINFUL STIMULI/ NURSING CARE. PATIENT HAS TEMP OF 100.6 DEGREES FAHRENHEIT. PATIENT REMAINS SATTING 90% AND GREATER ON SAME VENT SETTINGS. MODERATE AMOUNT OF THICK YELLOW/ BLOOD TINGED SPUTUTM BEING SUCTIONED FROM ETT. LEFT LUNG LOBES CLEAR, RIGHT LUNG LOBES DIMINISHED. PATIENT IN NSR, HR IN THE 90S. BP STABLE ON PRESSORS. LEVOPHED INFUSING AT 14 MCG/ MINUTE, VASOPRESSIN REMAINS AT 0.04 UNITS/ MINUTE. PATIENT TOLERATING TF- RESIDUAL OF ZERO. BLOOD SUGAR OF 134. NO OTHER ACUTE CHANGES TO NOTE ON AT THIS TIME. WILL CONTINUE TO MONITOR.
--- NOTE | 2019-01-27 16:41 | NUR ---
PATIENT RESTING QUIETLY. REMAINS INTUBATED AND SEDATED- UNRESPONSIVE. NO SIGNS OF PAIN OR DISCOMFORT NOTED. TEMP OF 100.4 DEGREES FAHRENHEIT. 2ND CHEST TUBE INSERTED- TO -20 CM WALL SUCTION- DRAINING SANGUINOUS FLUID. CHEST TUBE 1 TO WATER SEAL- NO AIR LEAK NOTED. L LUNGS CLEAR, RUB NOTED IN R LUNGS. VENT SETTINGS OF AC 22, TV 400, PEEP 10, FIO2 OF 65%. PATIENT REMAINS IN SR, HR IN THE 90S. BP STABLE. LEVOPHED AT 6 MCG/ MINUTE, VASOPRESSIN ON STANDBY. TF RESIDUAL OF 10 MLS OBTAINED AND REINSTILLED. TF INCREASED TO RATE OF 25 MLS/ HOUR. BOWEL SOUNDS HYPOACTIVE. HEPARIN ON SB SINCE RIGHT BEFORE CHEST TUBE INSERTION PROCEDURE. PROPOFOL INFUSING AT 50 MCG/ KG/ MINUTE. NO OTHER ACUTE CHANGES TO NOTE ON AT THIS TIME. FAMILY AT BEDSIDE. WILL CONTINUE TO MONITOR.
--- NOTE | 2019-01-27 18:54 | NUR ---
SHIFT SUMMARY PATIENT REMAINED INTUBATED AND SEDATED T/O SHIFT. PATIENT GRIMACING TO PAINFUL STIMULI TO UNRESPONSIVE DUE TO SEDATION T/O SHIFT. PATIENT HAD TMAX OF 100.7 DEGREES FAHRENHEIT. PATIENT HAS BEEN DECREASED TO VENT SETTINGS OF AC 22, TV 400, PEEP 10, FIO2 50% FROM PEEP 15 AND FIO2 OF 65% AT BEGINNING OF SHIFT. PATIENT HAD 2ND CHEST TUBE INSERTED THIS SHIFT- SINCE THEN, PRESSORS HAVE BEEN PLACED ON STANDBY. CHEST TUBE 2 DRAINING SANGUINOUS FLUID- 350 CC OUT THIS SHIFT. PATIENT HAD MODERATE AMOUNT OF THICK, YELLOW/ BLOOD TINGED SPUTUM SUCTIONED FROM ETT. PATIENT REMAINED IN SR, HR 80S TO 90S. PATIENT TOLERATING TF AT 25 MLS/ HOUR WITH 30 ML WATER FLUSH Q4H. TF TO BE INCREASED TO GOAL RATE AT 0000 IF REMAINS TOLERATING. RESIDUALS 10 ML AND BELOW THIS SHIFT. PATIENT HAD ONE MEDIUM, SOFT, BROWN BM THIS SHIFT. TEMP PROBE HALL CHANGED DURING SHIFT NO LONGER PATENT AND UNABLE TO FLUSH. PATIENT HAD ADEQUATE AMOUNT OF ORANGE, CLOUDY URINE WITH SEDIMENT OUT THIS SHIFT. PROPOFOL INFUSING AT 50 MCG/ KG/ MINUTE, NS TKO. HEPARIN ON HOLD UNTIL 1929 AND THEN WILL RESUME DRIP WITH NO BOLUS. PATIENT RECEIVED 3 G TOTAL OF CALCIUM GLUCONATE T/O SHIFT FOR LOW LEVELS. BED LOW, CALL LIGHT IN REACH. FAMILY AT BEDSIDE. WILL GIVE REPORT TO ONCOMING ACCESS REPRESENTATIVE NURSE SHORTLY.
--- NOTE | 2019-01-27 19:15 | NUR ---
ASSUMED CARE ASSUMED CARE OF PATIENT. REMAINS INTUBATED- AC 22, TV 400, PEEP 8, FIO2 45%. RIGHT ANTERIOR CHEST TUBE #1 TO WATER SEAL WITH SMALL AMOUNT OF SERO-SANGUINOUS DRAINAGE. NO FLUCTUATIONS NOTED IN TUBE. RIGHT ANTERIOR CHEST TUBE #2 TO 20CM SUCTION WITH SERO-SANGUINOUS DRAINAGE. AIR LEAK NOTED. NO SUBCUTANEOUS EMPHYSEMA/CREPITUS NOTED. SEDATED WITH PROPOFOL @ 50MCG/KG/MIN. OPENS EYES MINIMALLY TO NOXIOUS STIMULI. NOT FOLLOWING COMMANDS. REACHES WEAKLY FOR ETT WHEN RESTRAINTS LOOSENED/OFF. MOVES ALL EXTREMITIES WEAKLY. MONITOR SHOWS NSR, RATE 90s. BP STABLE AT THIS TIME. OG WITH VITAL HIGH PROTEIN INFUSING @ 25CC/HR (GOAL 35CC/HR). HALL PATENT AND DRAINING CLOUDY YELLOWISH-ORANGE URINE. KNEE HIGH GRACE HOSE IN PLACE. POWER GLIDE NOTED TO CAMILLE. PICC LINE TO BAY. SEE SHIFT ASSESSMENT FOR FULL ASSESSMENT.
--- NOTE | 2019-01-27 19:15 | NUR ---
REPORT GIVEN TO RICKIE CRAVEN RN.
--- NOTE | 2019-01-27 19:25 | NUR ---
HEPARIN GTT HEPARIN GTT RESTARTED AT THIS TIME PER ORDER- 21UNITS/KG/HR.
[2019-01-28 03:04] LABS: BASOPHILS ABSOLUTE AUTO 0.02 K/mm3 (0.00-0.23); BASOPHILS PERCENT AUTO 0 % (0-2); EOSINOPHILS ABSOLUTE AUTO 0.23 K/mm3 (0.00-0.68); EOSINOPHILS PERCENT AUTO 1 % (0-6); Hematocrit 18.2 % (37.0-53.0); Hemoglobin 6.3 g/dL (13.5-17.5); Mean Corpuscular HGB 31.2 pg (26.0-34.0); Mean Corpuscular HGB Conc 34.6 g/dL (31.5-36.5); Mean Corpuscular Volume 90 fL (80-100); Mean Platelet Volume 9.5 fL (9.1-12.4); NRBC ABSOLUTE 0.02 K/mm3 (0.00-0.02); NRBC Auto 0.1 /100 WBC (0.0-0.2); Platelet Count 192 K/mm3 (150-400); RDW Coefficient Variation 14.2 % (11.7-14.2); RDW Standard Deviation 46.5 fL (35.1-46.3); Red Blood Cell Count 2.02 M/mm3 (4.30-5.90); White Blood Cell Count 17.53 K/mm3 (4.00-11.30)
[2019-01-28 03:05] LABS: IMMATURE GRAN PERCENT AUTO 2 % (0-1); LYMPHOCYTES ABSOLUTE AUTO 0.98 K/mm3 (0.84-5.20); LYMPHOCYTES PERCENT AUTO 6 % (21-46); MONOCYTES ABSOLUTE AUTO 0.17 K/mm3 (0.16-1.47); MONOCYTES PERCENT AUTO 1 % (4-13); NEUTROPHILS ABSOLUTE AUTO 15.73 K/mm3 (1.96-9.15); NEUTROPHILS PERCENT AUTO 90 % (41-73)
[2019-01-28 03:17] LABS: Bun/Creatinine Ratio 22.1 (12.0-20.0); Calcium, Blood 6.4 mg/dL (8.5-10.1); Creatinine, Blood 1.49 mg/dL (0.60-1.20); Magnesium, Blood 1.9 mg/dL (1.6-2.4); Phosphorus, Blood 3.9 mg/dL (2.5-4.9); Potassium, Blood 3.8 mmol/L (3.5-5.5)
[2019-01-28 04:23] LABS: PCO2 Arterial 41.3 mmHg (35-45); PO2 Arterial 58.9 mmHg (80-100); pH Blood Arterial 7.49 (7.35-7.45)
--- NOTE | 2019-01-28 05:10 | NUR ---
LABS LABS AND STATUS UPDATE CALLED TO DR. WINTERS. NEW ORDERS RECEIVED TO TRANSFUSE 1UNIT PRBC, DECREASE AC RATE TO 20, AND FOR 1 AMP CALCIUM GLUCONATE IVPB.
--- NOTE | 2019-01-28 06:25 | NUR ---
SHIFT SUMMARY REMAINS INTUBATED- AC 20, TV 400, PEEP 10, FIO2 55%. RR 20-30s. RIGHT ANTERIOR CHEST TUBE #1 TO WATER SEAL- 65CC SEROSANGUINOUS DRAINAGE NOTED. RIGHT ANTERIOR CHEST TUBE #2 TO 20CM SUCTION- 350CC SEROSANGUINOUS NOTED DURING NOC. AIR LEAK NOTED IN CT #2. NO SUBCUTANEOUS EMPHYSEMA/CREPITUS NOTED. SEDATED WITH PROPOFOL BETWEEN 50-55MCG/KG/MIN DURING SHIFT- NOW INFUSING @ 55MCG/KG/MIN. MEDICATED WITH ATIVAN 2MG IV X 2 ADJUNCT TO SEDATION. BILATERAL SOFT WRIST RESTRAINTS REMAIN IN PLACE. MOVING ALL EXTREMITIES. NOT FOLLOWING COMMANDS. OG WITH VITAL HIGH PROTEIN INFUSING AT GOAL RATE OF 35CC/HR. RESIDUAL <10CC WITH ALL CHECKS. HALL PATENT AND DRAINING TO GRAVITY. HEPARIN INFUSING @ 21UNITS/KG/HR PER ORDER. LEVOPHED INFUSED BETWEEN 2-6MCG/MIN TO KEEP MAP >65- NOW INFUSING @ 5MCG/MIN. FAMILY AT BEDSIDE. PT IS TO RECEIVE 1 UNIT PRBC WHEN AVAILABLE. WILL REPORT TO DAY SHIFT RN WHEN AVAILABLE.
--- NOTE | 2019-01-28 09:30 | NUR ---
BEGINNING OF SHIFT Assumed care at 0700 with Dominic ANNE. Report received from Lindsey ANNE. AC 20, TV 400, PEEP 10, Fi02 55%. Pt difficult to arouse. Opens eyes to pressure. Does not follow commands. Propofol turned off for about 15 minutes. During sedation vacation, pt opened eyes spontaneously and followed commands. Pt restless in bed and tachypnic. Propofol turned back on to previous dose of 55 mcg/kg/min. Dr Frey in to see patient. Stated plan to titrate down propofol, manage anxiety and restlessness with ativan and fentanyl; and titrate down levophed. Propofol decreased to 45 mcg/kg/min. Rectal tube inserted due to large amount of dark green liquid stool. Pt tolerated insertion well. Temp sun catheter remains in place, draining dark orange urine with sediment. Chest tube #1 to anterior right chest (placed Saturday) is water sealed, but continues to drain serosangiunous fluid. Chest tube #2 to anterior right chest (placed Saturday) is to -20 cm suction, bubbling/fluctuating, draining serosanguinous fluid. No crepitus noted. Pt's brother and brother's s/o sleeping in room.
--- NOTE | 2019-01-28 09:30 | NUR ---
PT PLACED INTO DROPLET ISOLATION FOR MRSA IN THE SPUTUM. WILL RECOLLECT NEW SPUTUM THIS SHIFT.
--- NOTE | 2019-01-28 11:13 | NUR ---
SPOKE WITH EVETTE ZAMARRIPA ON THE ETHICS COMMITTEE ABOUT MOM'S DESIRE TO MAKE PT MEDICAL POA WHILE SHE IS IN TRANSPORT ON THE WAY TO THE HOSPITAL. CALLED PROVIDED PHONE NUMBER FOR PATIENT'S MOM TWICE WITH NO RESPONSE AND VOICEMAIL IS NOT SET UP, THEREFORE, UNABLE TO LEAVE A MESSAGE. WILL CONTINUE TO ATTEMPT TO GET AHOLD OF THE PT'S MOM (BRUNO GROSSMAN [phone]) TO GET VERBAL CONSENT FOR WHO WILL BE MAKING MEDICAL DECISIONS FOR PT. PER PT'S AUNT, SHE STATES PT'S MOM WOULD LIKE HIM TRANSFERRED TO [facility]. DR WINTERS CALLED TO CONSULT ON THIS PT. AWAITING A RETURN CALL.
--- NOTE | 2019-01-28 12:00 | NUR ---
UPDATE Pt's sister Chasity inquires about pt being transferred to [facility]. She states that she and the pt's mother, Josefina Clifton, would like for the pt to be transferred. Dr Frey updated. Dr Frey discussed the risks and benefits of transfer and stated plan for transfer to [facility].
[2019-01-28 12:55] LABS: Hematocrit 21.6 % (37.0-53.0); Hemoglobin 7.4 g/dL (13.5-17.5)
[2019-01-28 13:10] LABS: Bun/Creatinine Ratio 22.5 (12.0-20.0); Calcium, Blood 6.6 mg/dL (8.5-10.1); Creatinine, Blood 1.42 mg/dL (0.60-1.20); Potassium, Blood 3.8 mmol/L (3.5-5.5)
--- NOTE | 2019-01-28 15:00 | NUR ---
UPDATE Accepting bed assignment and accepting doctor recieved from [facility]. Plans to transfer pt, however transfer was delayed as pt's mother wanted to see the son prior to transfer. Pt's mother lives out of state and is planning on arriving to [facility] at 2230. Family was informed by pt's primary RNs and Dr Frey that transfer needed to happen now or room assignment could not be guaranteed if transfer is delayed until the pt's mother can visit early morning. Family deliberated for about 30 minutes. Family updated pt's significant other, Fe. This RN discussed reason for transfer with Fe, who verbalized understanding. Fe inquired about her decision-making capabilities for [facility]. This RN educated her that she does not have legal ability to make decisions for the patient, and it is important for her to work together with the pt's family despite poor relations with the patient's family. Pt verbalizes understanding.
--- NOTE | 2019-01-28 18:36 | NUR ---
TRANSFER TO [facility] Pt departed from ICU [address] [facility] at 1645. Pt transferred accomapnied by [facility] staff [place] RN and Jez RT. OG tube clamped. Chest tube #1 to water seal. Chest tube #2 to suction. Pt departed with rectal tube and sun in place. Pt also had 3 lumen PICC and midline catheter in place. Pt had levophed at 1 mcg/min, propofol 55 mcg/kg/min, and heparin 23 units/kg/hr. Pt's significant other took pt's belongings home. Vent settings at time of departure AC 20, TV 400, PEEP 10, and FiO2 60%. Report called to Reece ANNE at [facility]. Verbal release of information copied and sent in paperwork with patient. Pt transferred via ambulance.
== END 2019-01-28 16:50 | disposition short-term general hospital (02) | DRG 871 ==
LOC: ER 07:36 → ICUE 10:01 → ICUW 10:01 → ICUE 10:40
PROVIDERS: Internal Medicine Critical Care Medicine; Internal Medicine Infectious Disease; Internal Medicine Pulmonary Disease; Nurse Practitioner Acute Care; Pharmacist Critical Care; Physician Assistant; ADMIT Internal Medicine
PROC: 02HV33Z Insertion of Infusion Device into Superior Vena Cava, Percutaneous Approach (ICD-10-PCS; 2019-01-21)
PROC: 0BH17EZ Insertion of Endotracheal Airway into Trachea, Via Natural or Artificial Opening (ICD-10-PCS; 2019-01-26)
PROC: 5A1945Z Respiratory Ventilation, 24-96 Consecutive Hours (ICD-10-PCS; 2019-01-26)
PROC: 0W9930Z Drainage of Right Pleural Cavity with Drainage Device, Percutaneous Approach (ICD-10-PCS; 2019-01-26)
PROC: 30233N1 Transfusion of Nonautologous Red Blood Cells into Peripheral Vein, Percutaneous Approach (ICD-10-PCS; principal; 2019-01-27)
DX: A41.02 Sepsis due to Methicillin resistant Staphylococcus aureus (principal); R65.21 Severe sepsis with septic shock; J96.01 Acute respiratory failure with hypoxia; J15.212 Pneumonia due to Methicillin resistant Staphylococcus aureus; L03.211 Cellulitis of face; I82.601 Acute embolism and thrombosis of unspecified veins of right upper extremity; J93.9 Pneumothorax, unspecified; N17.9 Acute kidney failure, unspecified; E87.1 Hypo-osmolality and hyponatremia; E87.2 Acidosis; I38 Endocarditis, valve unspecified; D50.0 Iron deficiency anemia secondary to blood loss (chronic); I80.8 Phlebitis and thrombophlebitis of other sites; I95.9 Hypotension, unspecified; R74.0 Nonspecific elevation of levels of transaminase and lactic acid dehydrogenase [LDH]
CPT/HCPCS: 31500; 31720; 32551; 36415; 36430; 36556; 36569; 36600; 51702; 70491; 71045; 76700; 80048; 80053; 80069; 80076; 80202; 81001; 82330; 82803; 82947; 83605; 83690; 83735; 83880; 84100; 84145; 85014; 85018; 85025; 85027; 85610; 85730; 86850; 86900; 86901; 86923; 87040; 87070; 87077; 87086; 87147; 87186; 87205; 87389; 87449; 87486; 87581; 87633; 87798; 93005; 93010; 93306; 93312; 93325; 93971; 94002; 94003; 94640; 94660; 94667; 94668; 96361-59; 96365-59; 96375-59; 99285-25; A9270-GY; C1751; C9113; J0153; J0282; J0330; J0456; J0610; J0696; J0712; J1644; J1650; J1885; J1940; J1956; J2060; J2250; J2310; J2405; J2543; J2704; J2765; J3010; J3370; J3480; J7030; J7040; J7050; J7060; J7120; P9016; Q9967